=== PATIENT | female | born 1945 | race Caucasian/White ===

== ENCOUNTER 2021-04-08 15:47 | Outpatient (RCR) | payer MEDICARE, MEDICAID, SELFPAY ==
--- NOTE | 2021-04-08 17:04 | PTOPEVAL ---
Thank you for referring Danette Hernandez to [facility].? The patient is scheduled to be seen for therapy? ____x/week for ___ weeks. Please review, sign, date and return this plan of care PATRIC. I agree with and certify that the following plan of care is medically necessary. Referring Physician Date Admitting Provider: Attending Provider: FRANCIE WILLIAM Referring Provider: JORDY Outpatient Evaluation Start: 04/08/21 16:02 Freq: Status: Active Protocol: Document 04/08/21 16:02 ACR (Rec: 04/08/21 17:03 ACR [id number]) Therapy Assessment Status Assessment Status Assessment Status Evaluation Evaluation Information Problem Diagnosis R hip pain Onset 03/08/21 Subjective Information Patient states that about a Query Text:As Reported By Patient/ month ago she started to have Family groin pain and does not know of any mechanism of injury. Patient reports difficulty with walking, standing for more than 5-10 minutes, getting in and out of bed or a car due to her having difficulty lifting the leg. Patient reports that relaxing eases the pain. Patient reports that she lives along in her house and is able to do all of her ADL's. She does not drive and her daughter does her grocery shopping for her. She ambulates within the home using a FWW and a rollator out in the community. Patient reports her goal for therapy is to walk better and without pain. Prior Level of Function Activity Level (Last 3 Months) Occupation retired Hand Dominance Right Activity of Daily Living Ability Independent Indoor/Home Mobility Independent Community Mobility Needs Some Help Stairs Ability Needs Some Help Functional Cognition (Planning, Shopping Independent , Taking Medications) Cooking Yes Cleaning Yes Laundry Yes Shopping No Driving No Pain Assessment Timing of Pain Assessment Timing of Pain Assessment Assessment Pain Scale Pain Scale Used Numeric (1 - 10) Self Report Pain Assessment Right Hip(s) Repor
--- NOTE | 2021-05-27 08:53 | PCPTNOTE ---
Patient is a 76 year old female seen for 6 visits for hip pain. The patient feels she can do everything and would like to be discharged at this time. Please refer to most recent treatment note for discharge status. Thank you, Jane Lorenzana DPT
== END 2021-04-29 16:17 | disposition home or self-care (01) ==
LOC: CHSPT 15:47
PROVIDERS: PCP Emergency Medicine
DX: M16.11 Unilateral primary osteoarthritis, right hip (principal)
CPT/HCPCS: 97110; 97161

== ENCOUNTER 2023-09-27 10:49 | Inpatient (IN) | payer MEDICARE, MEDICAID, SELFPAY ==
--- NOTE | ~2023-09-27 | XR_ITS ---
EXAMINATION: XR chest 1V INDICATION: Pain after fall TECHNIQUE: AP view of the chest is obtained. COMPARISON: None available FINDINGS: There are subtle patchy airspace opacities of the lungs. No pleural effusion or pneumothora x. The cardiomediastinal silhouette is normal. IMPRESSION: 1. Subtle patchy airspace opacities of the lungs which could reflect atelectasis versus pneumonia. Reviewed, dictated and finalized at location B. RESSION MOLDING MACHINE OPERATOR IMPRESSION: 1. Subtle patchy airspace opacities of the lungs which could reflect atelectasi s versus pneumonia.
--- NOTE | ~2023-09-27 | XR_ITS ---
EXAMINATION: XR pelvis 1-2V INDICATION: Left hip pain TECHNIQUE: AP view the pelvis is obtained. COMPARISON: None available FINDINGS: There is an oblique fracture of the proximal femoral shaft. The distal fracture fragment is medially displaced and overriding by approximately 5 cm. Bone alignment the hips is normal. No pelvi c fractures identified. There is calcified atherosclerosis. IMPRESSION: 1. Oblique fracture of the proximal femoral shaft which is displaced and overriding. Reviewed, dictated and finalized at location B. SOCIAL SERVICES IMPRESSION: 1. Oblique fracture of the proximal femoral shaft which is displaced and overri ding.
--- NOTE | ~2023-09-27 | XR_ITS ---
EXAMINATION: XR femur LT min 2V INDICATION: Left hip pain, initial encounter TECHNIQUE: Two views of the left femur are obtained on four radiographs COMPARISON: None available FINDINGS: There is an acute, traumatic, closed, oblique fracture of the distal femoral shaft. The dis juana fracture fragment is medially displaced and overriding by approximately 5 cm. There is shortening of the thigh. Alignment at the hip and knee is normal. IMPRESSION: 1. Displaced and overriding fracture of the distal femur. Reviewed, dictated and finalized at location B. NESS NURSE
--- NOTE | ~2023-09-27 | XR_ITS ---
EXAMINATION: XR surgery orthopedic DATE: 09/28/2023 12:45 TRACK LAYING SUPERVISOR INDICATION: LT IT NAIL . TECHNIQUE: 8 fluoroscopic images of the left femur were obtained during left intertrochanteric nail p lacement, performed by the surgeon. I was not present during the procedure. Fluoroscopy exposure time was 161.6 seconds. Air Kerma 35.57 mGy. DAP [id number] mGym2. COMPARISON: None FINDINGS/IMPRESSION: Fluoroscopic documentation of left intertrochanteric nail placement. Please refer to the operative no te for complete procedural details. Reviewed, dictated and finalized at location K. K LAYING SUPERVISOR
--- NOTE | ~2023-09-27 | XR_ITS ---
EXAMINATION: [id number]_[id number]_CR DATE: 09/30/2023 09:49 INDICATION: Right knee pain. TECHNIQUE: 2 views of right knee were obtained. COMPARISON: None. FINDINGS: Bone alignment is normal. No fracture. There is mild osteoarthritis of patellofemoral karina rtment. No knee joint effusion. IMPRESSION: 1. Mild right knee osteoarthritis. Reviewed, dictated and finalized at location A. IFIED FLIGHT INSTRUCTOR
[2023-09-27 10:40] VITALS: BP 175/65; PULSE 84; RESP 19; TEMP 36.5; O2SAT 97
--- NOTE | 2023-09-27 11:13 | ECG_ITS ---
Measurements Intervals [place] Rate: 88 P: 44 OK: 143 QRS: 17 QRSD: 82 T: 31 QT: 357 QTc: 432 Interpretive Statements SINUS RHYTHM WITH OCCASIONAL SUPRAVENTRICULAR PREMATURE COMPLEXES OTHERWISE WITHIN NORMAL LIMITS NO PREVIOUS ECG AVAILABLE FOR COMPARISON Electronically Signed On 09-27-2023 18:25:16 CAPTAIN OF GUARDS by Papa Booth M.D.
--- NOTE | 2023-09-27 11:19 | ED.FALL ---
HPI - Fall General Chief Complaint: Fall <JEANETTE Melvin Last Filed: 09/27/23 19:30> Stated Complaint: fall, hip pain <Kiki Jones PA-C - Last Filed: 09/27/23 19:30> Source: patient <Kiki Jones PA-C - Last Filed: 09/27/23 19:30> Mode of arrival: EMS <JEANETTE Melvin Last Filed: 09/27/23 19:30> Limitations: no limitations <JEANETTE Melvin Last Filed: 09/27/23 19:30> History of Present Illness HPI Narrative: Patient is a 78 y/o female who presents to the ED via EMS from home with report of fall. Patient reports she was standing up making tea for herself when she slipped and fell. She landed on her left side. Was unable to get off the ground, complained of pain to left hip/thigh. Deformity noted by EMS. Patient denies any head injury or LOC. Denies any other areas of pain. Denies neck or back pain, knee pain. Denies dizziness, vision changes. Denies numbness or tingling. Patient was given fentanyl EN route to the ED by EMS and had a localized reaction to this at IV site, given Benadryl. Patient is on any blood thinners. She is typically ambulatory with a walker. <Kiki Jones PA-C - Last Filed: 09/27/23 19:30> Related Data Home Medications: Home Medications Medication Instructions Recorded Confirmed amlodipine 5 mg tablet 5 mg PO DAILY 09/27/23 09/27/23 aspirin 325 mg tablet 325 mg PO DAILY 09/27/23 09/27/23 benazepril 20 mg tablet 20 mg PO DAILY 09/27/23 09/27/23 donepezil 5 mg tablet 5 mg PO HS 09/27/23 09/27/23 hydrochlorothiazide 12.5 mg capsule 12.5 mg PO DAILY 09/27/23 09/27/23 levetiracetam 500 mg tablet 500 mg PO Q12H 09/27/23 09/27/23 lovastatin 20 mg tablet 20 mg PO HS 09/27/23 09/27/23 magnesium 250 mg tablet 250 mg PO DAILY 09/27/23 09/27/23 mirtazapine 45 mg tablet 45 mg PO HS 09/27/23 09/27/23 omeprazole 40 mg capsule,delayed 40 mg PO DAILY 09/27/23 09/27/23 release pentoxifylline 400 mg 400 mg PO TID 09/27/23 09/27/23 tablet,extended release pramipexole 0.25 mg tablet 0.25 mg PO HS 09/27/23 09/27/23 ropinirole 4 mg tablet 4 mg PO HS 09/27/23 09/27/23 <Kiki Jones PA-C - Last Filed: 09/27/23 19:30> Allergies/Adverse Reactions: Allergies Allergy/AdvReac Type Severity Reaction Status Date / Time fentanyl Allergy Rash Verified 09/27/23 11:02 <Kiki Jones PA-C - Last Filed: 09/27/23 19:30> Review of Systems Review of Systems: CONSTITUTIONAL: Denies fever, chills, or sweats. CARDIOVASCULAR: Denies chest pain. RESPIRATORY: Denies dyspnea. GASTROINTESTINAL: Denies abdominal pain, nausea, vomiting MUSCULOSKELETAL: See HPI. NEUROLOGIC: See HPI. <Kiki Jones PA-C - Last Filed: 09/27/23 19:30> All systems reviewed & are unremarkable except as noted in HPI and below <Kiki Jones PA-C - Last Filed: 09/27/23 19:30> [facility] Past Medical History Medical History: Medical History (Updated 09/27/23 @ 22:42 by Monique Conway PA-C) Cerebral aneurysm Fracture of femur, left, closed Frequent falls Hyperlipidemia Hypertension Insomnia Memory loss Partial seizures Peripheral vascular disease Restless leg syndrome Vitamin D deficiency <Kiki Jones PA-C - Last Filed: 09/27/23 19:30> Surgical History Surgical History: Surgical History (Updated 09/27/23 @ 22:42 by Monique Conway PA-C) No history of previous surgery <Kiki Jones PA-C - Last Filed: 09/27/23 19:30> Social History Social History: Social History Social History: Surrogate medical decision maker: Darshana Martínez, daughter. Code status: Full code. Smoking status: Current every day smoker Tobacco type: e-cigarettes/vaping Alcohol intake: never Substance use: never Do You Feel Safe in your Home?: Yes Lack of Transportation: No Lack of Food: Never True Current Hous
[2023-09-27 11:50] VITALS: BP 150/72; PULSE 88; RESP 28; O2SAT 97
[2023-09-27 12:08] LABS: Basophils Absolute Auto 0.1 K/mm3 (0.0-0.1); Basophils Percent Auto 0.4 % (0.2-1.2); Eosinophils Percent Auto 0.1 % (0-4.4); Hematocrit 34.5 % (37.0-47.0); Hemoglobin 11.4 g/dL (12.0-15.0); Immature Granulocyte Absolute 0.06 K/mm3 (0.00-0.031); Immature Granulocyte Percent A 0.4 % (0-0.5); Lymphocytes Absolute Auto 1.19 K/mm3 (0.9-3.2); Lymphocytes Percent Auto 8.5 % (18.3-44.2); Mean Corpuscular Hemoglobin 29.9 pg (26-34); Mean Corpuscular Volume 90.6 fl (80-100); Mean Platelet Volume 10.3 fl (7.4-10.4); Monocytes Absolute Auto 0.9 K/mm3 (0.1-0.6); Monocytes Percent Auto 6.5 % (2.6-8.5); Neutrophils Absolute Auto 11.7 K/mm3 (1.3-6.7); Neutrophils Percent Auto 84.1 % (45.5-73.1); Platelet Count Result 298 k/mm3 (150-375); Red Blood Count 3.81 M/mm3 (4.2-5.4); Red Cell Distribution Width 12.5 % (11.5-14.5); White Blood Count 13.9 K/mm3 (4.5-10.0)
[2023-09-27 12:12] LABS: Appearance Urine Clear (Clear); Bacteria Urine 4+ /hpf; Bilirubin Urine Negative (Negative); Blood Urine 1+ (Negative); Color Urine Yellow (Yellow); Glucose Urine UA Negative (Negative); Ketones Urine Negative (Negative); Leukocyte Esterase Ur Negative LEU/UL (Negative); Nitrate Urine Positive (Negative); Non Pathogenic Casts 0-2; Protein Urine 2+ mg/dL (Negative); RBC Urine 0-2 /hpf (0-2); Specific Grav Ur 1.015 (1.001-1.035); Squamous Epithelial Cell Urine None seen /hpf (Few); Urobilinogen Urine 0.2 mg/dL (<2.0); WBC Urine 0-5 /hpf
[2023-09-27 12:15] LABS: Add Urine Microscopic? YES
[2023-09-27 12:17] LABS: Alanine Aminotransferase 28 U/L (6-35); Albumin Level 4.2 g/dL (3.5-5.1); Alkaline Phosphatase 175 U/L (38-126); Anion Gap 7 mmol/L (8-16); Aspartate Amino Transferase 52 U/L (14-36); Bilirubin,Total 0.6 mg/dL (0.2-1.3); Blood Urea Nitrogen 25 mg/dL (7-17); Carbon Dioxide 23 mmol/L (22-30); Chloride 99 mmol/L (98-107); Estimated Glomerular Filt Rate 60; Glucose 116 mg/dL (65-110); Potassium 4.8 mmol/L (3.4-5.0); Sodium 129 mmol/L (137-145)
[2023-09-27 12:20] LABS: Partial Thromboplastin Time 28.9 SECONDS (22.3-36.8)
[2023-09-27] MEDS: ONDANSETRON INJ 4 MG/2 ML VIAL IV PUSH ×2 (12:32→14:32)
[2023-09-27] MEDS: MORPHINE SULFATE (*CRX) 4 MG/ML INJ IV PUSH ×4 (12:35→21:42)
[2023-09-27 12:37] VITALS: BP 187/78; PULSE 88; RESP 23; O2SAT 96
--- NOTE | 2023-09-27 14:38 | PM.IMHP ---
H&P: HPI History of Present Illness Date/Time: 09/27/23 13:45 Chief Complaint: Left leg pain after fall. Narrative: This is a 78-year-old female with hypertension, hyperlipidemia, peripheral vascular disease, memory loss, partial seizures, restless leg syndrome, gastroesophageal reflux disease, and vitamin-D deficiency who presented to the emergency department via EMS from home for evaluation of left leg pain after a ground level fall. The patient provides the following history. Per patient report she was standing in the kitchen, preparing herself a cup of tea, when she lost her balance and fell down to the floor onto her left side. She had immediate pain in the left leg and was unable to get up due to the pain. She denies head trauma and loss of consciousness in the fall and she has no other complaints of injury aside from the left hip pain. She also denies prodrome of symptoms prior to the episode and specifically denies lightheadedness, dizziness, chest pain, pleuritic pain, sensations of racing heart, palpitations, and shortness of breath. Of note, the patient ambulates with a walker though she has had some falls recently which she attributes to pain in her right knee which occasionally ayah. Is my understanding that she was seen by an internal controls specialist recently, had imaging done, and she was prescribed Voltaren gel which seems to help with her discomfort. In the ED: Blood pressure was as high as 187/78 but that has improved with IV pain medications. Labs were significant for WBC count of 13.9, hemoglobin 11.9, sodium 129, BUN 25, creatinine 0.90, glucose 116, AST 52, ALT 175. Urine was positive for protein, blood, nitrates, and bacteria. Minimal if any WBCs were noted on microscopy. Chest x-ray showed subtle patchy airspace opacities the lungs which could be atelectasis versus pneumonia. Pelvis and femur x-ray showed a distal left femur fracture. She is being admitted in this setting for pain control and orthopedic consultation. Regarding the abnormal chest x-ray and urinalysis, she denies symptoms of pneumonia and UTI. Review of Systems Review of Systems: Twelve systems were reviewed and are negative except for as per HPI. [facility] Past Medical History Medical History (Updated 09/27/23 @ 22:42 by Monique Conway PA-C) Cerebral aneurysm Fracture of femur, left, closed Frequent falls Hyperlipidemia Hypertension Insomnia Memory loss Partial seizures Peripheral vascular disease Restless leg syndrome Vitamin D deficiency Surgical History Surgical History (Updated 09/27/23 @ 22:42 by Monique Conway PA-C) No history of previous surgery Social History Social History Social History: Surrogate medical decision maker: Darshana Martínez, daughter. Code status: Full code. Smoking status: Current every day smoker Tobacco type: e-cigarettes/vaping Alcohol intake: never Substance use: never Do You Feel Safe in your Home?: Yes Lack of Transportation: No Lack of Food: Never True Current Housing: I Have Housing Concerned About Future Housing: No Difficulty Paying Gas/Electric Bills: No Difficulty Paying for Meds: No Currently Unemployed: No Education: Decline to Answer Difficulty w/ Childcare or Family Care: No Spiritual care concerns: No Meds Home Medications and Allergies Home Medications Medication Instructions Recorded Confirmed Type amlodipine 5 mg tablet 5 mg PO DAILY 09/27/23 09/27/23 History aspirin 325 mg tablet 325 mg PO DAILY 09/27/23 09/27/23 History benazepril 20 mg tablet 20 mg PO DAILY 09/27/23 09/27/23 History donepezil 5 mg tablet 5 mg PO HS 09/27/23 09/27/23 History hydrochlorothiazide 12.5 mg capsule 12.5 mg PO DAILY 09/27/23 09/27/23 History levetiracetam 500 mg tablet 500 mg PO Q12H 09/27/23 09/27/23 History lovastatin 20 mg tablet 20 mg PO HS 09/27/23 09/27/23 History magnesium 250 mg tablet 250 mg PO DA
[2023-09-27 14:39] VITALS: BP 144/66; PULSE 80; RESP 24; TEMP 36.8; O2SAT 97
[2023-09-27 14:52] VITALS: BP 153/51; PULSE 79; RESP 18; TEMP 36.4; O2SAT 95
--- NOTE | 2023-09-27 15:09 | PM.CNOR ---
Assessment and Plan Assessment and plan (1) Fracture of distal end of left femur: Qualifiers: Encounter type: initial encounter Fracture morphology: other fracture Fracture type: closed Qualified Code(s): S72.492A - Other fracture of lower end of left femur, initial encounter for closed fracture <Arabella Jasso CARPET RENOVATOR - Last Filed: 09/27/23 15:39> Code(s): S72.402A - Unspecified fracture of lower end of left femur, initial encounter for closed fracture <Arabella Pau Jasso, CARPET RENOVATOR - Last Filed: 09/27/23 15:39> Status: Acute <Arabella Ocampoz, CARPET RENOVATOR - Last Filed: 09/27/23 15:39> Assessment and Plan: History, exam and radiographs reviewed with the patient and her daughter at the bedside. Radiographs of the left femur reveal a displaced and overriding fracture of the distal femur. The fracture type and injury as well as radiographs discussed with the patient and family. Operative and nonoperative treatment options reviewed. Recommended operative treatment with IM nail of the left femur fracture. The patients questions were answered. The patient desires operative treatment. Discussed IM Nail Left Femur Fracture by Dr. Sullivan . Risks of surgery including but not limited to neurovascular damage, wound complications, blood clot, pulmonary embolus, stroke, myocardial infarction, anesthetic risks up to and including were reviewed. Risk of nonunion, malunion or late displacement discussed. Stiffness, pain and possible dysfunction of the joint discussed. No guarantees were offered. The patient and family understands and wishes to proceed. Plan: IM Nail Left Femur Fracture by Dr. Sullivan NPO at midnight. Diet in interim per medicine team. Pain control. Ice. HOLD Anticoagulation. Obtain consent. <Arabellasa Pau Jasso, CARPET RENOVATOR - Last Filed: 09/27/23 15:39> (2) Hyponatremia: Code(s): E87.1 - Hypo-osmolality and hyponatremia <ArabellaCORKY Rae - Last Filed: 09/27/23 15:39> Status: Acute <Arabellasa Pau Jasso CARPET RENOVATOR - Last Filed: 09/27/23 15:39> (3) Abnormal chest x-ray: Code(s): R93.89 - Abnormal findings on diagnostic imaging of other specified body structures <Arabella Ocamporikki CARPET RENOVATOR - Last Filed: 09/27/23 15:39> Status: Acute <Arabella Jasso CARPET RENOVATOR - Last Filed: 09/27/23 15:39> (4) Abnormal urinalysis: Code(s): R82.90 - Unspecified abnormal findings in urine <Arabella Pau Ocampoz, CARPET RENOVATOR - Last Filed: 09/27/23 15:39> Status: Acute <Arabella Pau Jasso CARPET RENOVATOR - Last Filed: 09/27/23 15:39> (5) UTI (urinary tract infection): Qualifiers: Hematuria presence: without hematuria Urinary tract infection type: acute cystitis Qualified Code(s): N30.00 - Acute cystitis without hematuria <Arabella Ocamporikki CARPET RENOVATOR - Last Filed: 09/27/23 15:39> Code(s): N39.0 - Urinary tract infection, site not specified <Arabella Ocamporikki CARPET RENOVATOR - Last Filed: 09/27/23 15:39> Status: Acute <Arabella Ocamporikki CARPET RENOVATOR - Last Filed: 09/27/23 15:39> (6) Frequent falls: Code(s): R29.6 - Repeated falls <Arabella Ocamporikki CARPET RENOVATOR - Last Filed: 09/27/23 15:39> Status: Acute <Arabella Jasso CARPET RENOVATOR - Last Filed: 09/27/23 15:39> Assessment and Plan: The patient has had frequent falls over the last several months. Patient will likely require discharge to a [facility] facility for rehabilitation postoperatively. Would recommend care coordination consult to begin dispo services. Family would prefer [facility]. <Arabella ManleyBlu Romero, CARPET RENOVATOR - Last Filed: 09/27/23 15:39> (7) Fracture of femur, left, closed: Qualifiers: Encounter type: initial encounter Femur location: shaft Fracture morphology: spiral Fracture alignment: displaced Qualified Code(s): S72.342A - Displaced spiral fracture of shaft of left femur, initial encounter for closed fracture <Arabellasa Pau Jasso CARPET RENOVATOR - Last Filed: 09/27/23 15:39> C
[2023-09-27 15:38] VITALS: BMI 36.3
--- NOTE | 2023-09-27 15:41 | ADMGEN ---
This patient, Danette Hernandez, was admitted to [facility] Surg Room 332-01. Patient/family oriented to hospital policies and general routines including ID bracelet, bed and alarms, visiting hours, pain management, procedures, bathroom and other care routines, personal items, smoking policy, room service/diet, and visiting hours. Information on how to activate the Rapid Response Team has been discussed. Patient/Family are encouraged to report perceived risks to care and to ask questions if they do not understand what they are told or what they should do.
[2023-09-27 22:00] VITALS: BP 162/71; PULSE 84; RESP 18; TEMP 36; O2SAT 93
[2023-09-28] VITALS (10 sets, daily range): BP systolic 117–161; BP diastolic 52–129; PULSE 74–87; RESP 14–20; TEMP 35.9–36.8; O2SAT 90–100
[2023-09-28] MEDS: LOVASTATIN 20 MG TABLET PO
[2023-09-28 00:32] LABS: Sodium 129 mmol/L (137-145)
[2023-09-28 00:48] LABS: Creatinine Urine 62.8 mg/dL; Urea Random Urine 646 MG/DL
[2023-09-28 00:50] LABS: Sodium Urine Random 121 meq/L
[2023-09-28] MEDS: MORPHINE SULFATE (*CRX) 4 MG/ML INJ 2 MG IV PUSH ×2 (03:28→20:45)
[2023-09-28 05:49] LABS: Hemoglobin 10.5 g/dL (12.0-15.0); Mean Corpuscular HGB Conc 31.8 g/dl (32-36); Mean Corpuscular Hemoglobin 29.8 pg (26-34); Mean Corpuscular Volume 93.8 fl (80-100); Mean Platelet Volume 10.5 fl (7.4-10.4); Platelet Count Result 268 k/mm3 (150-375); Red Blood Count 3.52 M/mm3 (4.2-5.4); Red Cell Distribution Width 12.8 % (11.5-14.5)
[2023-09-28 06:11] LABS: Anion Gap 6 mmol/L (8-16); Blood Urea Nitrogen 37 mg/dL (7-17); Calcium 9.2 mg/dL (8.4-10.2); Carbon Dioxide 24 mmol/L (22-30); Chloride 100 mmol/L (98-107); Estimated Glomerular Filt Rate 33; Glucose 103 mg/dL (65-110); Magnesium 1.7 mg/dL (1.6-2.3); Potassium 4.9 mmol/L (3.4-5.0); Sodium 130 mmol/L (137-145)
--- NOTE | 2023-09-28 07:28 | WPDHPUPDATE1 ---
History and Physical Update Update Date/Time: 09/28/23 07:28 History and Physical has been reviewed, including an updated exam of the patient. There are NO changes in the patient's condition. Risks, benefits, and alternatives have been discussed and questions answered. Patient agrees to proceed with procedure.
[2023-09-28] MEDS: PENTOXIFYLLINE 400 MG TABCR PO ×4 (08:23→20:24)
[2023-09-28] MEDS: amLODIPine BESYLATE 5 MG TABLET PO (08:23)
[2023-09-28] MEDS: levETIRAcetam 500 MG TABLET PO ×3 (08:23→20:24)
--- NOTE | 2023-09-28 08:35 | PM.IMPN ---
Progress Note: A&P Assessment and Plan (1) Fracture of distal end of left femur: Qualifiers: Encounter type: initial encounter Fracture morphology: other fracture Fracture type: closed Qualified Code(s): S72.492A - Other fracture of lower end of left femur, initial encounter for closed fracture Code(s): S72.402A - Unspecified fracture of lower end of left femur, initial encounter for closed fracture Status: Acute (2) Hyponatremia: Code(s): E87.1 - Hypo-osmolality and hyponatremia Status: Acute (3) Abnormal urinalysis: Code(s): R82.90 - Unspecified abnormal findings in urine Status: Acute (4) Fall from ground level: Code(s): W18.30XA - Fall on same level, unspecified, initial encounter Status: Acute (5) Abnormal chest x-ray: Code(s): R93.89 - Abnormal findings on diagnostic imaging of other specified body structures Status: Acute (6) Hypertension: Code(s): I10 - Essential (primary) hypertension Status: Acute (7) Hyperlipidemia: Code(s): E78.5 - Hyperlipidemia, unspecified Status: Acute (8) Partial seizures: Code(s): R56.9 - Unspecified convulsions Status: Acute (9) Restless leg syndrome: Code(s): G25.81 - Restless legs syndrome Status: Acute (10) Memory loss: Code(s): R41.3 - Other amnesia Status: Acute (11) Peripheral vascular disease: Code(s): I73.9 - Peripheral vascular disease, unspecified Status: Acute Plan This is a 78-year-old female with hypertension, hyperlipidemia, peripheral vascular disease, memory loss, partial seizures, restless leg syndrome, gastroesophageal reflux disease, and vitamin-D deficiency who presented to the emergency department via EMS from home for evaluation of left leg pain after a ground level fall. The patient provides the following history. Per patient report she was standing in the kitchen, preparing herself a cup of tea, when she lost her balance and fell down to the floor onto her left side. She had immediate pain in the left leg and was unable to get up due to the pain. She denies head trauma and loss of consciousness in the fall and she has no other complaints of injury aside from the left hip pain. She also denies prodrome of symptoms prior to the episode and specifically denies lightheadedness, dizziness, chest pain, pleuritic pain, sensations of racing heart, palpitations, and shortness of breath. Of note, the patient ambulates with a walker though she has had some falls recently which she attributes to pain in her right knee which occasionally ayah. Is my understanding that she was seen by an literacy specialist recently, had imaging done, and she was prescribed Voltaren gel which seems to help with her discomfort. In the ED: Blood pressure was as high as 187/78 but that has improved with IV pain medications. Labs were significant for WBC count of 13.9, hemoglobin 11.9, sodium 129, BUN 25, creatinine 0.90, glucose 116, AST 52, ALT 175. Urine was positive for protein, blood, nitrates, and bacteria. Minimal if any WBCs were noted on microscopy. Chest x-ray showed subtle patchy airspace opacities the lungs which could be atelectasis versus pneumonia. Pelvis and femur x-ray showed a distal left femur fracture. She is being admitted in this setting for pain control and orthopedic consultation. Regarding the abnormal chest x-ray and urinalysis, she denies symptoms of pneumonia and UTI. She has a distal left femur fracture and will be NPO after midnight for surgical repair tomorrow. Analgesics are available as needed. Sodium was low 129 though she appears euvolemic on exam and I suspect this is due to her hydrochlorothiazide which will be held for now. TSH normal follow urine studies. UTI she received a dose of ceftriaxone in the emergency department for abnormal urinalysis we will continue with that, urine culture is growing E coli, as she is going to have
[2023-09-28 09:12] LABS: Creatine Kinase 1043 U/L (30-135)
--- NOTE | 2023-09-28 09:47 | PC.NURSE ---
To OR per bed. Report given to Natalie GAMEZ.
[2023-09-28] MEDS: LACTATED RINGERS 1,000 ML 30 ML IV CONT ×2 (10:05→14:01)
[2023-09-28] MEDS: ACETAMINOPHEN 500 MG TABLET 1000 MG PO (10:18)
[2023-09-28] MEDS: KETOROLAC 15 MG/ML VIAL (*BKC) IV PUSH (10:18)
--- NOTE | 2023-09-28 10:58 | WPDANESEPPF ---
Anes - Initial Pre Proc Eval Procedure: Operation Date: 09/28/23 11:00 Proposed Procedures p Left Intramedullary Nail - Bartolo Sullivan MD Date/Time: 09/28/23 10:58 Surgeon: Caroline Dickey MD Pre Op Diagnosis: GLF/ L DISTAL Femur Fx/ UTI Patient Data Age: 78 Gender: F Height: 1.37 m Weight: 68.5 kg Last Vital Signs Temp 36.8 C 09/28/23 06:30 Pulse 81 09/28/23 06:30 Resp 18 09/28/23 06:30 BP 137/60 09/28/23 06:30 Pulse Ox 95 09/28/23 06:30 O2 Del Method Room Air 09/28/23 08:20 Allergies Allergy/AdvReac Type Severity Reaction Status Date / Time fentanyl Allergy Rash Verified 09/28/23 10:34 Home Medications Medication Instructions Recorded Confirmed Type amlodipine 5 mg tablet 5 mg PO DAILY 09/27/23 09/27/23 History aspirin 325 mg tablet 325 mg PO DAILY 09/27/23 09/27/23 History benazepril 20 mg tablet 20 mg PO DAILY 09/27/23 09/27/23 History donepezil 5 mg tablet 5 mg PO HS 09/27/23 09/27/23 History hydrochlorothiazide 12.5 mg capsule 12.5 mg PO DAILY 09/27/23 09/27/23 History levetiracetam 500 mg tablet 500 mg PO Q12H 09/27/23 09/27/23 History lovastatin 20 mg tablet 20 mg PO HS 09/27/23 09/27/23 History magnesium 250 mg tablet 250 mg PO DAILY 09/27/23 09/27/23 History mirtazapine 45 mg tablet 45 mg PO HS 09/27/23 09/27/23 History omeprazole 40 mg capsule,delayed 40 mg PO DAILY 09/27/23 09/27/23 History release pentoxifylline 400 mg 400 mg PO TID 09/27/23 09/27/23 History tablet,extended release pramipexole 0.25 mg tablet 0.25 mg PO HS 09/27/23 09/27/23 History ropinirole 4 mg tablet 4 mg PO HS 09/27/23 09/27/23 History Laboratory Tests 09/27/23 09/27/23 09/28/23 12:02 23:55 00:19 WBC 13.9 H K/mm3 (4.5-10.0) RBC 3.81 L M/mm3 (4.2-5.4) Hgb 11.4 L g/dL (12.0-15.0) Hct 34.5 L % (37.0-47.0) MCV 90.6 fl (80-100) MCH 29.9 pg (26-34) MCHC 33.0 g/dl (32-36) RDW 12.5 % (11.5-14.5) Plt Count 298 k/mm3 (150-375) MPV 10.3 fl (7.4-10.4) Immature Gran % (Auto) 0.4 % (0-0.5) Neut % (Auto) 84.1 H % (45.5-73.1) Lymph % (Auto) 8.5 L % (18.3-44.2) Wise % (Auto) 6.5 % (2.6-8.5) Eos % (Auto) 0.1 % (0-4.4) Baso % (Auto) 0.4 % (0.2-1.2) Lymph # (Auto) 1.19 K/mm3 (0.9-3.2) Wise # (Auto) 0.9 H K/mm3 (0.1-0.6) Eos # (Auto) 0.0 K/mm3 (0-0.3) Baso # (Auto) 0.1 K/mm3 (0.0-0.1) Abs Immat Gran (auto) 0.06 H K/mm3 (0.00-0.031) Absolute Neuts (auto) 11.7 H K/mm3 (1.3-6.7) Absolute Nucleated RBC 0.0 K/mm3 (0.0-0.012) Nucleated RBC % 0.0 % (0.0-0.2) PT 14.0 Seconds (11.1-14.7) INR 1.0 APTT 28.9 SECONDS (22.3-36.8) Sodium 129 L mmol/L 129 L mmol/L (137-145) (137-145) Potassium 4.8 mmol/L (3.4-5.0) Chloride 99 mmol/L (98-107) Carbon Dioxide 23 mmol/L (22-30) Anion Gap 7 L mmol/L (8-16) BUN 25 H mg/dL (7-17) Creatinine 0.90 mg/dL (0.7-1.0) Estim Creat Clear Calc Not Reportable Estimated GFR 60 (59 - ) Glucose 116 H mg/dL (65-110) Serum Osmolality Pending Calcium 10.0 mg/dL (8.4-10.2) Magnesium Total Bilirubin 0.6 mg/dL (0.2-1.3) AST 52 H U/L (14-36) ALT 28 U/L (6-35) Alkaline Phosphatase 175 H U/L (38-126) Total Creatine Kinase Total Protein 7.0 g/dL (6.3-8.2) Albumin 4.2 g/dL (3.5-5.1) TSH (Reflex) 3.290 uIU/mL (0.465-4.68) Urine Color Yellow (Yellow) Urine Appearance Clear (Clear) Urine pH 6.0 (5.0-9.0) Ur Specific [place] 1.015 (1.001-1.035) Urine Protein 2+ H mg/dL
[2023-09-28] MEDS: TRANEXAMIC ACID 1,000MG/ISO100 1,000 MG/100 ML BAG 200 MG IVPB (11:35)
[2023-09-28] MEDS: ceFAZolin 2 GM/D5W 50 ML 2 GM/50 ML BAG IVPB (12:01)
[2023-09-28] MEDS: BUPIVACAINE/EPINEPHRINE 0.5% 30 ML VIAL 15 ML INFILTRATE (12:53)
--- NOTE | 2023-09-28 13:12 | P.OP_ITS ---
Procedure Note - Detailed Date of Procedure 09/28/23 Pre-op Diagnosis GLF/ L Femur Fx/ UTI Post-op Diagnosis Same Procedure Performed IM nail fixation left femur fracture, diaphyseal Surgeon Bartolo Sullivan MD [facility] [employer] healthcare administrative assistant Anesthesia General Indications 78-year-old who fell and sustained a left distal femoral shaft fracture. Desires operative treatment. Description of Procedure After informed consent the operative extremity was marked in the preoperative holding area. Patient received intravenous antibiotics. The patient was taken to the operative room, placed in the supine position, general anesthesia induced by the anesthesia team, and was placed on a fracture table with longitudinal traction applied to the left leg. The femur fracture was reduced to near anatomic position and verified with image intensification. A time-out was performed confirming the patient, site of the surgery and plan. The left lower extremity was prepped and draped sterilely from the knee to the iliac crest region using a ChloraPrep skin solution. Incision was made just proximal to greater trochanter down to the subcutaneous tissues. Hemostasis controlled with electrocautery. Blunt dissection through the fascia to the tip of the greater trochanter. A starter awl was placed at the tip of the greater trochanter into the medullary canal of the femur. This was checked with image intensification and was in good position. In tramedullary guide ankur positioned. A one-step hand reaming done proximally. Intramedullary canal was reamed with a 12.5 millimeter flexible reamer. Measuring was then performed off of the guide ankur. Neck angle selected off of preoperative radiographs temp plating. 125 degree 11 X 300 mm Nail opened on the back table and assembled. This was then inserted over the guide ankur to the correct depth. Guide ankur removed. Lag screw was then placed with a stab incision over the lateral femur using a 10 blade knife. Blunt dissection down to the lateral side of the bone. Soft tissue protectors placed. Guide pin placed in the center center position of the femoral head and measured. 85 millimeter x 10 millimeter lag screw placed to correct depth and verified with image intensification. Traction released from the leg and compression of the fracture performed with the external compression device. Distal locking of the nail necessary due to instability in the intramedullary canal and proximal femur. Stab incision made lateral mid thigh with the placement guide. Blunt dissection down lateral side of the femur. Soft tissue protector inserted. Image intensification used to guide drill which was placed through the locking hole. Distal femur measured and the appropriate size screw placed x 2screws. Image intensification confirmed the placement through the locking hole. Final image intensification confirm reduction of the fracture and placement of the hardware. Wounds then thoroughly irrigated with antibiotic solution. Fascia repaired with 0 Vicryl interrupted suture. Subcutaneous tissue repaired with 00 Vicryl interrupted suture and skin approximated with 3-0 Monocryl interrupted suture and Dermabond. Sterile dressings applied. Patient then awoke from anesthesia, extubated, taken to recovery room stable condition. All sponge, needle and instrument counts correct at the end the case. Implants Arthrex intramedullary nail 125 degree x 300 mm by 11 mm. 85 mm lag screw and 46 and 50 mm distal locking screw Estimated Blood Loss 100 Drains No Packing No Pathology None sent Complications None Condition Stable Disposition PACU [facility] [place], [place] [facility] Surgery [facility]
[2023-09-28] MEDS: fentaNYL CITRATE INJ (*CRX) 100 MCG/2 ML VIAL 25 MCG IV PUSH (13:44)
[2023-09-28] MEDS: PANTOPRAZOLE 40 MG TABLET PO (17:51)
[2023-09-28] MEDS: SENNA/DOCUSATE SODIUM TABLET 2 TAB PO (17:51)
[2023-09-28] MEDS: RIVAROXABAN 10 MG TABLET PO (17:53)
[2023-09-28] MEDS: MAGNESIUM 13.5 MG TABLET (250 MG MAG GLUCONATE) PO (17:53)
--- NOTE | 2023-09-28 19:25 | PC.NURSE ---
I have reviewed the Beulah's charting. I agree with her findings.
[2023-09-28 20:14] LABS: Anion Gap 6 mmol/L (8-16); Blood Urea Nitrogen 40 mg/dL (7-17); Carbon Dioxide 22 mmol/L (22-30); Chloride 101 mmol/L (98-107); Creatine Kinase 888 U/L (30-135); Estimated Glomerular Filt Rate 33; Glucose 141 mg/dL (65-110); Sodium 129 mmol/L (137-145)
[2023-09-28] MEDS: MIRTAZAPINE 15 MG TABLET 45 MG PO ×2 (20:23)
[2023-09-28] MEDS: rOPINIRole HCL 1 MG TABLET 4 MG PO ×2 (20:23)
[2023-09-28] MEDS: ceFAZolin 1 GM/NS 50 ML 1 GM/50 ML BAG IVPB (20:23)
[2023-09-28] MEDS: PRAMIPEXOLE 0.25 MG TABLET PO ×2 (20:24)
[2023-09-28] MEDS: DONEPEZIL HCL 5 MG TABLET PO ×2 (20:24)
[2023-09-28] MEDS: HYDROcodone/acetaminophen (*CRX) 5-325 MG TABLET 1 TAB PO (20:28)
[2023-09-28] MEDS: SODIUM CHLORIDE 0.9% IV 1,000 ML 80 ML IV CONT (21:00)
[2023-09-29 01:00] VITALS: BP 132/53; PULSE 77; RESP 18; TEMP 36.4; O2SAT 95
[2023-09-29] MEDS: ceFAZolin 1 GM/NS 50 ML 1 GM/50 ML BAG IVPB ×2 (03:30→11:13)
[2023-09-29] MEDS: PENTOXIFYLLINE 400 MG TABCR PO ×3 (05:48→20:01)
[2023-09-29] MEDS: HYDROcodone/acetaminophen (*CRX) 5-325 MG TABLET 1 TAB PO ×3 (05:48→19:57)
[2023-09-29 05:55] VITALS: BP 156/61; PULSE 90; RESP 20; TEMP 36.3; O2SAT 94
[2023-09-29 06:28] LABS: Basophils Percent Auto 0.3 % (0.2-1.2); Eosinophils Percent Auto 0.2 % (0-4.4); Hematocrit 30.1 % (37.0-47.0); Hemoglobin 9.1 g/dL (12.0-15.0); Immature Granulocyte Absolute 0.06 K/mm3 (0.00-0.031); Immature Granulocyte Percent A 0.5 % (0-0.5); Lymphocytes Absolute Auto 1.62 K/mm3 (0.9-3.2); Lymphocytes Percent Auto 13.9 % (18.3-44.2); Mean Corpuscular HGB Conc 30.2 g/dl (32-36); Mean Corpuscular Hemoglobin 29.9 pg (26-34); Mean Platelet Volume 10.6 fl (7.4-10.4); Monocytes Percent Auto 8.5 % (2.6-8.5); Neutrophils Absolute Auto 8.9 K/mm3 (1.3-6.7); Neutrophils Percent Auto 76.6 % (45.5-73.1); Platelet Count Result 222 k/mm3 (150-375); Red Blood Count 3.04 M/mm3 (4.2-5.4); Red Cell Distribution Width 12.4 % (11.5-14.5); White Blood Count 11.7 K/mm3 (4.5-10.0)
[2023-09-29 06:45] LABS: Alanine Aminotransferase 21 U/L (6-35); Albumin Level 3.3 g/dL (3.5-5.1); Alkaline Phosphatase 125 U/L (38-126); Anion Gap 8 mmol/L (8-16); Aspartate Amino Transferase 48 U/L (14-36); Bilirubin,Total 0.6 mg/dL (0.2-1.3); Blood Urea Nitrogen 35 mg/dL (7-17); Carbon Dioxide 18 mmol/L (22-30); Chloride 105 mmol/L (98-107); Creatine Kinase 802 U/L (30-135); Estimated Glomerular Filt Rate 40; Glucose 105 mg/dL (65-110); Magnesium 1.8 mg/dL (1.6-2.3); Potassium 4.7 mmol/L (3.4-5.0); Sodium 131 mmol/L (137-145)
[2023-09-29 08:00] VITALS: BP 149/48; PULSE 88; RESP 16; TEMP 36.7; O2SAT 97
[2023-09-29] MEDS: polyethylene glycoL 3350 17 GM POWD.PACK PO (09:37)
[2023-09-29] MEDS: ASPIRIN 325 MG TABLET PO (09:38)
[2023-09-29] MEDS: levETIRAcetam 500 MG TABLET PO ×2 (09:38→20:01)
[2023-09-29] MEDS: amLODIPine BESYLATE 5 MG TABLET PO (09:38)
[2023-09-29] MEDS: PANTOPRAZOLE 40 MG TABLET PO ×2 (09:38→17:50)
[2023-09-29] MEDS: SENNA/DOCUSATE SODIUM TABLET 2 TAB PO ×2 (09:38→17:49)
[2023-09-29] MEDS: MAGNESIUM 13.5 MG TABLET (250 MG MAG GLUCONATE) PO (09:38)
[2023-09-29] MEDS: SODIUM CHLORIDE 0.9% IV 1,000 ML 80 ML IV CONT (09:39)
[2023-09-29] MEDS: MORPHINE SULFATE (*CRX) 4 MG/ML INJ 2 MG IV PUSH ×2 (11:12→20:48)
--- NOTE | 2023-09-29 11:38 | PM.IMPN ---
Progress Note: A&P Assessment and Plan (1) Fracture of distal end of left femur: Qualifiers: Encounter type: initial encounter Fracture morphology: other fracture Fracture type: closed Qualified Code(s): S72.492A - Other fracture of lower end of left femur, initial encounter for closed fracture Code(s): S72.402A - Unspecified fracture of lower end of left femur, initial encounter for closed fracture Status: Acute Assessment and Plan: Patient presents with complaints of hip pain after fall. X-ray shows oblique fracture of the proximal left femoral shaft which is displaced and overriding. Orthopedics was consulted. Patient underwent IM nail fixation left femur fracture on 09/28/2023. Patient appears of tolerated the procedure well. Therapy has been ordered. Pain management per Orthopedics. Stop IV fluids and remove Esqueda when okay with others. (2) Hyponatremia: Code(s): E87.1 - Hypo-osmolality and hyponatremia Status: Acute Assessment and Plan: Sodium was low on admission 129. It has improved slightly to 131. Possibly related to dehydration. Continue to monitor. (3) DEYANIRA (acute kidney injury): Code(s): N17.9 - Acute kidney failure, unspecified Status: Acute Assessment and Plan: Creatinine was 0.9 on admission but climbed to 1.5. Probably ATN vs medications vs infectious. Lisinopril and HCTZ on hold. IV fluids started. Creatinine trending downward now. Mild metabolic acidosis noted. Will follow for now. (4) UTI (urinary tract infection): Qualifiers: Hematuria presence: without hematuria Urinary tract infection type: acute cystitis Qualified Code(s): N30.00 - Acute cystitis without hematuria Code(s): N39.0 - Urinary tract infection, site not specified Status: Acute Assessment and Plan: UA is consistent with UTI. UCx collected. Rocephin started. UCx growing E coli sensitive to Rocephin. Change to cefdinir (5) Fall from ground level: Code(s): W18.30XA - Fall on same level, unspecified, initial encounter Status: Acute Assessment and Plan: As above. Appears that she was standing outside of the sink in the kitchen and lost her balance and fell. There was no head trauma. She is not complaining of knee pain but this seems to be more chronic. The right knee does occasionally buckle. Will defer to Orthopedics regarding the right knee pain. (6) Abnormal chest x-ray: Code(s): R93.89 - Abnormal findings on diagnostic imaging of other specified body structures Status: Acute Assessment and Plan: Chest x-ray shows subtle patchy airspace opacity in the lungs felt more likely atelectasis than pneumonia. No respiratory symptoms to support pneumonia. Remains on room air. follow clinically. (7) Hypertension: Code(s): I10 - Essential (primary) hypertension Status: Acute Assessment and Plan: Patient's blood pressure was reviewed on 09/29 Blood pressure remains reasonably well controlled. 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 Continue Keppra (9) Memory loss: Code(s): R41.3 - Other amnesia Status: Acute Assessment and Plan: Stable. Continue Aricept. Remeron is also been resumed. (10) Peripheral vascular disease: Code(s): I73.9 - Peripheral vascular disease, unspecified Status: Acute Assessment and Plan: Patient with known peripheral vascular disease. Currently on Trental. Mirapex and Requip continued for restless leg syndrome. Plan Code status - full DVT prophylaxis - Xarelto Subjective Date/time seen: 09/29/23 11:38 Interval history: 78yo female with HTN, seizures and PVD here for left hip pain after a fall. Assuming care. Chart reviewed. Her left leg pain is tolerabl
[2023-09-29 12:00] VITALS: BP 134/51; PULSE 81; RESP 16; TEMP 36.6; O2SAT 98
--- NOTE | 2023-09-29 12:35 | PM.PNORT ---
Progress Note: A&P Assessment and Plan (1) Fracture of femur, left, closed: Qualifiers: Encounter type: subsequent encounter Femur location: shaft Fracture morphology: spiral Fracture alignment: displaced Fracture healing: with routine healing Qualified Code(s): S72.342D - Displaced spiral fracture of shaft of left femur, subsequent encounter for closed fracture with routine healing Code(s): S72.92XA - Unspecified fracture of left femur, initial encounter for closed fracture Status: Acute Assessment and Plan: POD #1 LT femur IM nail PT/OT TTWB Xarelto Pain control Acute rehab vs SNF- family requests [facility] Subjective Subjective Date/Time Seen: 09/29/23 12:35 Post Op day: 1 Principal diagnosis: LT femur fracture Interval history: Patient resting comfortably. Awake and alert. Less confused today. Oriented to person, place and time. Complains of minimal pain left hip. Exam Const: General: comfortable; No acute distress Resp: Effort & Inspection: normal respiratory effort and no audible wheezes Extrem: Right lower extremity: lower leg ( Negative Homans sign), ankle Details: normal ROM ( dorsiflexion and plantar flexion intact) and foot Details: vascular exam Details: dorsalis pedis pulse present and normal capillary refill, tendon exam Details: active flexion normal and active extension normal and motor-sensory exam Details: light-touch normal Location: in all toes; no edema Left lower extremity: normal to inspection, ankle Details: normal ROM and foot Details: vascular exam Details: dorsalis pedis pulse present and normal capillary refill and motor-sensory exam light-touch normal in all toes; no edema Other: LT thigh, muscles soft, negative Jay's. Good sensation throughout. Moves toes and ankle Objective Data Vital Signs Vital Signs: Vital Signs - 24 hr 09/28/23 13:25 09/28/23 13:40 09/28/23 13:55 Temperature 97.7 F Pulse Rate 85 84 82 Respiratory Rate 16 17 18 Blood Pressure 161/129 H 148/94 H 117/53 L Pulse Oximetry 100 100 100 Oxygen Delivery Simple Face Mask Simple Face Mask Simple Face Mask Oxygen Flow Rate 6 8 6 09/28/23 14:10 09/28/23 14:25 09/28/23 14:40 Temperature 98.0 F Pulse Rate 85 87 81 Respiratory Rate 14 17 14 Blood Pressure 154/85 H 130/54 L 140/52 L Pulse Oximetry 93 90 98 Oxygen Delivery Room Air Room Air Nasal Cannula Oxygen Flow Rate 2 09/28/23 15:40 09/28/23 17:00 09/28/23 20:00 Temperature 97.9 F 98.0 F Pulse Rate 78 81 Respiratory Rate 19 18 Blood Pressure 136/53 L 144/61 H Pulse Oximetry 99 99 Oxygen Delivery Room Air Oxygen Flow Rate 09/28/23 21:20 09/29/23 01:00 09/29/23 05:55 Temperature 96.7 F L 97.6 F 97.4 F L Pulse Rate 74 77 90 Respiratory Rate 20 18 20 Blood Pressure 128/57 L 132/53 L 156/61 H Pulse Oximetry 97 95 94 Oxygen Delivery Oxygen Flow Rate 09/29/23 08:00 09/29/23 09:50 09/29/23 10:53 Temperature 98.0 F Pulse Rate 88 Respiratory Rate 16 Blood Pressure 149/48 H Pulse Oximetry 97 Oxygen Delivery Room Air Room Air Oxygen Flow Rate 09/29/23 12:00 Temperature 97.9 F Pulse Rate 81 Respiratory Rate 16 Blood Pressure 134/51 L Pulse Oximetry 98 Oxygen Delivery Oxygen Flow Rate Intake/Output Intake/Output: Intake & Output 09/26/23 09/27/23 09/28/23 09/29/23 23:59 23:59 23:59 23:59 Intake Total 290 1120 1402 Output Total 450 450 550 Balance -160 670 852 Meds/Results Medications: Active Medications Generic Name Dose Route Start Last Admin Trade Name Freq PRN Reason Stop Dose Admin Acetaminophen 650 mg 09/27/23 22:48 Acetaminophen 325 Mg Tablet PO Q6H PRN Mild Pain (1-3) or Fever Hydrocodone Bitart/Acetaminophen 1 tab 09/28/23 14:58 09/29/23 09:37 Hydrocodone/Acetaminophen (*Crx) 5-325 Mg Tablet PO 1 tab Q3H PRN Administration Pain Rated 4-6 Amlodipine Besylate 5 mg 09/28/23 09:00
[2023-09-29 16:00] VITALS: BP 146/46; PULSE 89; RESP 16; TEMP 36.7; O2SAT 97
[2023-09-29] MEDS: RIVAROXABAN 10 MG TABLET PO (17:50)
[2023-09-29 20:00] VITALS: BP 134/55; PULSE 103; RESP 20; TEMP 36.9; O2SAT 98
[2023-09-29] MEDS: rOPINIRole HCL 1 MG TABLET 4 MG PO (20:01)
[2023-09-29] MEDS: PRAMIPEXOLE 0.25 MG TABLET PO (20:01)
[2023-09-29] MEDS: DONEPEZIL HCL 5 MG TABLET PO (20:01)
[2023-09-29] MEDS: CEFDINIR 300 MG CAPSULE PO (20:02)
[2023-09-29] MEDS: MIRTAZAPINE 15 MG TABLET 45 MG PO (20:02)
[2023-09-30] VITALS: BP 150/51; PULSE 91; RESP 20; TEMP 36.4; O2SAT 97
[2023-09-30] MEDS: HYDROcodone/acetaminophen (*CRX) 5-325 MG TABLET 1 TAB PO ×2 (04:44→21:17)
[2023-09-30] MEDS: PENTOXIFYLLINE 400 MG TABCR PO ×3 (04:44→20:55)
[2023-09-30 06:53] VITALS: BP 186/54; PULSE 98; RESP 20; TEMP 36.9; O2SAT 97
[2023-09-30 06:58] LABS: Hematocrit 26.9 % (37.0-47.0); Hemoglobin 8.5 g/dL (12.0-15.0); Mean Corpuscular HGB Conc 31.6 g/dl (32-36); Mean Corpuscular Hemoglobin 30.6 pg (26-34); Mean Corpuscular Volume 96.8 fl (80-100); Mean Platelet Volume 10.9 fl (7.4-10.4); Platelet Count Result 224 k/mm3 (150-375); Red Blood Count 2.78 M/mm3 (4.2-5.4); Red Cell Distribution Width 12.7 % (11.5-14.5)
[2023-09-30 07:15] LABS: Albumin Level 3.2 g/dL (3.5-5.1); Anion Gap 3 mmol/L (8-16); Blood Urea Nitrogen 28 mg/dL (7-17); Calcium 9.2 mg/dL (8.4-10.2); Carbon Dioxide 22 mmol/L (22-30); Chloride 107 mmol/L (98-107); Estimated Glomerular Filt Rate 43; Glucose 112 mg/dL (65-110); Magnesium 1.8 mg/dL (1.6-2.3); Phosphorus 3.1 mg/dL (2.5-4.5); Potassium 4.3 mmol/L (3.4-5.0); Sodium 132 mmol/L (137-145)
[2023-09-30 08:20] VITALS: BP 167/45; PULSE 89; RESP 17; TEMP 36.8; O2SAT 98
[2023-09-30] MEDS: SODIUM CHLORIDE 0.9% IV 1,000 ML 80 ML IV CONT ×2 (08:53→16:21)
[2023-09-30] MEDS: CEFDINIR 300 MG CAPSULE PO ×2 (09:13→20:51)
[2023-09-30] MEDS: polyethylene glycoL 3350 17 GM POWD.PACK PO (09:14)
[2023-09-30] MEDS: amLODIPine BESYLATE 5 MG TABLET PO (09:14)
[2023-09-30] MEDS: ASPIRIN 325 MG TABLET PO (09:16)
[2023-09-30] MEDS: SENNA/DOCUSATE SODIUM TABLET 2 TAB PO ×2 (09:16→16:17)
[2023-09-30] MEDS: levETIRAcetam 500 MG TABLET PO ×2 (09:16→20:51)
[2023-09-30] MEDS: PANTOPRAZOLE 40 MG TABLET PO ×2 (09:16→16:17)
[2023-09-30] MEDS: MAGNESIUM 13.5 MG TABLET (250 MG MAG GLUCONATE) PO (09:16)
--- NOTE | 2023-09-30 09:25 | PM.PNORT ---
Progress Note: A&P Assessment and Plan (1) Fracture of femur, left, closed: Qualifiers: Encounter type: subsequent encounter Femur location: shaft Fracture morphology: spiral Fracture alignment: displaced Fracture healing: with routine healing Qualified Code(s): S72.342D - Displaced spiral fracture of shaft of left femur, subsequent encounter for closed fracture with routine healing Code(s): S72.92XA - Unspecified fracture of left femur, initial encounter for closed fracture Status: Acute Assessment and Plan: POD #2 LT femur IM nail Continue PT/OT. WBAT. Walker. HIGH FALL RISK. Continue pain control. Ice Leg. Protect skin. DVT prophylaxis with Aspirin/Xarelto SCDs. Incentive Spirometry Use reviewed. Monitor Dressing. Change prior to discharge. Bowel Regimen. Dispo: SNF vs. Swing Bed vs [facility] pending progress with PT/OT (2) Right knee pain: Qualifiers: Chronicity: chronic Qualified Code(s): M25.561 - Pain in right knee; G89.29 - Other chronic pain Code(s): M25.561 - Pain in right knee Status: Acute Assessment and Plan: Family/patient with complaints of right knee pain. History of right knee DJD. No radiographs available for review. New radiographs ordered. Plan for possible injection of the right knee pending radiograph results. Plan Reviewed history, exam, radiographs and current labs with attending MD and covering surgeon, Dr. Sullivan, who agrees with current plan as indicated above. No further recommendations from Dr. Sullivan at this time. Time Spent With Patient Time: Reviewed history, exam, radiographs and current labs with attending MD and covering surgeon, Dr. Sullivan, who agrees with current plan as indicated above. No further recommendations from Dr. Sullivan at this time. Subjective Subjective Date/Time Seen: 09/30/23 09:25 Post Op day: 2 Principal diagnosis: LT femur fracture Interval history: Patient resting comfortably. Awake and alert. Less confused today. Oriented to person, place and time. Complains of minimal pain left hip. Complaining of right knee pain. Hopeful for injection with cortisone. Previously told she had DJD of the right knee. Review of Systems Review of Systems: All systems reviewed & are unremarkable except as noted in HPI and below Exam Const: General: comfortable; No acute distress Resp: Effort & Inspection: normal respiratory effort and no audible wheezes Extrem: Right lower extremity: knee Details: tenderness, normal ROM and abnormal ROM Details: pain with active ROM during Details: in extension and in flexion, lower leg (Negative Jay's sign) Details: normal to inspection, ankle Details: normal ROM ( dorsiflexion and plantar flexion intact) and foot Details: vascular exam Details: dorsalis pedis pulse present and normal capillary refill, tendon exam Details: active flexion normal and active extension normal and motor-sensory exam Details: light-touch normal Location: in all toes; no edema Left lower extremity: normal to inspection, ankle Details: normal ROM and foot Details: vascular exam Details: dorsalis pedis pulse present and normal capillary refill and motor-sensory exam light-touch normal in all toes; no edema Other: LT thigh, muscles soft, negative Jay's. Good sensation throughout. Moves toes and ankle Objective Data Vital Signs Vital Signs: Vital Signs - 24 hr 09/29/23 09:50 09/29/23 10:53 09/29/23 12:00 Temperature 36.6 C Pulse Rate 81 Respiratory Rate 16 Blood Pressure 134/51 L Pulse Oximetry 98 Oxygen Delivery Room Air Room Air 09/29/23 16:00 09/29/23 20:00 09/29/23 20:00 Temperature 36.7 C 36.9 C Pulse Rate 89 103 H Respiratory Rate 16 20 Blood Pressure 146/46 H 134/55 L Pulse Oximetry 97 98 Oxygen Delivery Room Air 09/30/23 00:00 09/30/23 06:53 09/30/23 08:20 Temperature 36.4 C 36.9 C 36.8 C Pulse Rate 91 98 89 Respiratory Rate 20 20 17 Blood Pr
[2023-09-30 12:01] VITALS: BP 138/55; PULSE 83; RESP 18; TEMP 36.9; O2SAT 98
--- NOTE | 2023-09-30 15:37 | PM.IMPN ---
Progress Note: A&P Assessment and Plan (1) Fracture of distal end of left femur: Qualifiers: Encounter type: initial encounter Fracture type: closed Fracture morphology: other fracture Qualified Code(s): S72.492A - Other fracture of lower end of left femur, initial encounter for closed fracture Code(s): S72.402A - Unspecified fracture of lower end of left femur, initial encounter for closed fracture Status: Acute Assessment and Plan: Patient presented with complaints of hip pain after fall. X-ray showed oblique fracture of the proximal left femoral shaft which was displaced and overriding. Orthopedics was consulted and patient underwent IM nail fixation left femur fracture on 09/28/2023. Patient tolerated the procedure well. Therapy was ordered. Pain management per Orthopedics. (2) Hyponatremia: Code(s): E87.1 - Hypo-osmolality and hyponatremia Status: Acute Assessment and Plan: Sodium was low on admission 129. It has improved slightly to 132 Possibly related to dehydration. Continue to monitor. (3) DEYANIRA (acute kidney injury): Code(s): N17.9 - Acute kidney failure, unspecified Status: Acute Assessment and Plan: Creatinine was 0.9 on admission but climbed to 1.5. Probably ATN vs medications vs infectious. Lisinopril and HCTZ on hold. IV fluids started. Creatinine trending downward now. Mild metabolic acidosis resolved. Will follow for now. (4) UTI (urinary tract infection): Qualifiers: Hematuria presence: without hematuria Urinary tract infection type: acute cystitis Qualified Code(s): N30.00 - Acute cystitis without hematuria Code(s): N39.0 - Urinary tract infection, site not specified Status: Acute Assessment and Plan: UA is consistent with UTI. UCx collected. Rocephin started. UCx growing E coli sensitive to Rocephin. Changed to cefdinir (5) Fall from ground level: Code(s): W18.30XA - Fall on same level, unspecified, initial encounter Status: Acute Assessment and Plan: As above. Appears that she was standing next to her sink in the kitchen and lost her balance and fell. There was no head trauma. She was not complaining of knee pain but this seems to be more chronic. The right knee does occasionally buckle. Right knee xray showing mild right knee OA. Will defer to Orthopedics regarding the right knee pain. (6) Abnormal chest x-ray: Code(s): R93.89 - Abnormal findings on diagnostic imaging of other specified body structures Status: Acute Assessment and Plan: Chest x-ray shows subtle patchy airspace opacity in the lungs felt more likely atelectasis than pneumonia. No respiratory symptoms to support pneumonia. Remains on room air. follow clinically. (7) Hypertension: Code(s): I10 - Essential (primary) hypertension Status: Acute Assessment and Plan: Patient's blood pressure was reviewed on Blood pressure remains reasonably well controlled. 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 Continue Keppra (9) Memory loss: Code(s): R41.3 - Other amnesia Status: Acute Assessment and Plan: Stable. Continue Aricept. Remeron was also been resumed. (10) Peripheral vascular disease: Code(s): I73.9 - Peripheral vascular disease, unspecified Status: Acute Assessment and Plan: Patient with known peripheral vascular disease. Currently on Trental. Mirapex and Requip continued for restless leg syndrome. Plan Code status - full DVT prophylaxis - Xarelto Subjective Date/time seen: 09/30/23 15:37 Interval history: 78yo female with HTN, seizures and PVD here for left hip pain after a fall. She feels 'so-so'
[2023-09-30] MEDS: RIVAROXABAN 10 MG TABLET PO (16:17)
[2023-09-30 17:02] VITALS: BP 144/55; PULSE 92; RESP 18; TEMP 36.8; O2SAT 97
[2023-09-30] MEDS: MIRTAZAPINE 15 MG TABLET 45 MG PO (20:50)
[2023-09-30] MEDS: rOPINIRole HCL 1 MG TABLET 4 MG PO (20:50)
[2023-09-30] MEDS: PRAMIPEXOLE 0.25 MG TABLET PO (20:51)
[2023-09-30] MEDS: DONEPEZIL HCL 5 MG TABLET PO (20:51)
[2023-09-30 21:05] VITALS: BP 153/57; PULSE 102; RESP 20; TEMP 36.4; O2SAT 95
[2023-10-01 01:48] VITALS: PULSE 99; RESP 18; TEMP 36.1; O2SAT 95
[2023-10-01] MEDS: HYDROcodone/acetaminophen (*CRX) 5-325 MG TABLET 1 TAB PO ×2 (04:28→17:08)
[2023-10-01] MEDS: SODIUM CHLORIDE 0.9% IV 1,000 ML 80 ML IV CONT (04:28)
[2023-10-01] MEDS: PENTOXIFYLLINE 400 MG TABCR PO ×3 (05:48→20:54)
[2023-10-01 06:00] VITALS: BP 156/58; PULSE 96; RESP 20; TEMP 36.1; O2SAT 93
[2023-10-01 06:32] LABS: Hematocrit 24.1 % (37.0-47.0); Hemoglobin 7.7 g/dL (12.0-15.0); Mean Corpuscular Hemoglobin 30.6 pg (26-34); Mean Corpuscular Volume 95.6 fl (80-100); Mean Platelet Volume 10.7 fl (7.4-10.4); Platelet Count Result 235 k/mm3 (150-375); Red Blood Count 2.52 M/mm3 (4.2-5.4); Red Cell Distribution Width 12.8 % (11.5-14.5); White Blood Count 8.4 K/mm3 (4.5-10.0)
[2023-10-01 06:50] LABS: Albumin Level 3.1 g/dL (3.5-5.1); Anion Gap 4 mmol/L (8-16); Blood Urea Nitrogen 26 mg/dL (7-17); Calcium 9.4 mg/dL (8.4-10.2); Carbon Dioxide 23 mmol/L (22-30); Chloride 109 mmol/L (98-107); Estimated Glomerular Filt Rate 48; Glucose 115 mg/dL (65-110); Phosphorus 2.8 mg/dL (2.5-4.5); Potassium 4.3 mmol/L (3.4-5.0); Sodium 136 mmol/L (137-145)
[2023-10-01] MEDS: FUROSEMIDE INJ 40 MG/4 ML VIAL 20 MG IV PUSH (08:47)
[2023-10-01] MEDS: MAGNESIUM 13.5 MG TABLET (250 MG MAG GLUCONATE) PO (08:48)
[2023-10-01] MEDS: SENNA/DOCUSATE SODIUM TABLET 2 TAB PO ×2 (08:48→17:07)
[2023-10-01] MEDS: levETIRAcetam 500 MG TABLET PO ×2 (08:48→20:53)
[2023-10-01] MEDS: ASPIRIN 325 MG TABLET PO (08:48)
[2023-10-01] MEDS: polyethylene glycoL 3350 17 GM POWD.PACK PO (08:48)
[2023-10-01] MEDS: lisinopriL 20 MG TABLET PO (08:48)
[2023-10-01] MEDS: amLODIPine BESYLATE 5 MG TABLET PO (08:48)
[2023-10-01] MEDS: CEFDINIR 300 MG CAPSULE PO ×2 (08:48→20:53)
[2023-10-01] MEDS: PANTOPRAZOLE 40 MG TABLET PO ×2 (08:49→17:07)
--- NOTE | 2023-10-01 09:53 | PM.PNORT ---
Progress Note: A&P Assessment and Plan (1) Fracture of femur, left, closed: Qualifiers: Encounter type: subsequent encounter Femur location: shaft Fracture morphology: spiral Fracture alignment: displaced Fracture healing: with routine healing Qualified Code(s): S72.342D - Displaced spiral fracture of shaft of left femur, subsequent encounter for closed fracture with routine healing Code(s): S72.92XA - Unspecified fracture of left femur, initial encounter for closed fracture Status: Acute Assessment and Plan: POD #3 LT femur IM nail Continue PT/OT. WBAT. Walker. HIGH FALL RISK. Continue pain control. Ice Leg. Protect skin. DVT prophylaxis with Aspirin/Xarelto SCDs. Incentive Spirometry Use reviewed. Monitor Dressing. Change prior to discharge. Bowel Regimen. Dispo: SNF vs. Swing Bed vs [facility] pending progress with PT/OT (2) Right knee pain: Qualifiers: Chronicity: chronic Qualified Code(s): M25.561 - Pain in right knee; G89.29 - Other chronic pain Code(s): M25.561 - Pain in right knee Status: Acute Assessment and Plan: Family/patient with complaints of right knee pain. Radiographs of the right knee reveal mild to moderate degenerative changes as well as osteopenia. Patient would benefit from a BMD as an outpatient. Discussed cortisone injection for right knee DJD for pain relief at this time. Patient/family agree. Injection performed, tolerated well. May follow up in the outpatient clinic. The risks of injection were reviewed including but not limited to skin color changes, atrophy of the soft tissue, tendon or soft tissue rupture, joint degeneration, hyper inflammatory response, allergic reaction, continued pain or dysfunction. Specific risks of the procedure including deep infection or soft tissue rupture or recurrence of symptoms reviewed. No guarantees were offered. The patient understands the need for possible further treatment. Plan Reviewed history, exam, radiographs and current labs with attending MD and covering surgeon, Dr. Sullivan, who agrees with current plan as indicated above. No further recommendations from Dr. Sullivan at this time. Subjective Subjective Date/Time Seen: 10/01/23 09:53 Post Op day: 3 Principal diagnosis: LT femur fracture Interval history: Patient sitting up in chair at time of exam. Pain well controlled on the LLE currently. Concerns about right knee pain given she is putting all of her weight on that leg. Review of Systems Review of Systems: All systems reviewed & are unremarkable except as noted in HPI and below Exam Const: General: comfortable; No acute distress Resp: Effort & Inspection: normal respiratory effort and no audible wheezes Extrem: Right lower extremity: knee Details: tenderness, normal ROM and abnormal ROM Details: pain with active ROM during Details: in extension and in flexion, lower leg (Negative Jay's sign) Details: normal to inspection, ankle Details: normal ROM ( dorsiflexion and plantar flexion intact) and foot Details: vascular exam Details: dorsalis pedis pulse present and normal capillary refill, tendon exam Details: active flexion normal and active extension normal and motor-sensory exam Details: light-touch normal Location: in all toes; no edema Left lower extremity: normal to inspection, ankle Details: normal ROM and foot Details: vascular exam Details: dorsalis pedis pulse present and normal capillary refill and motor-sensory exam light-touch normal in all toes; no edema Other: LT thigh, muscles soft, negative Jay's. Good sensation throughout. Moves toes and ankle Objective Data Vital Signs Vital Signs: Vital Signs - 24 hr 09/30/23 12:01 09/30/23 17:02 09/30/23 21:05 Temperature 36.9 C 36.8 C 36.4 C L Pulse Rate 83 92 102 H Respiratory Rate 18 18 20 Blood Pressure 138/55 L 144/55 H 153/57 H Pulse Oximetry 98 97 95 10/01/23 01:48 10/01/23 06:00 Temperature 36.1 C L 3
--- NOTE | 2023-10-01 11:33 | PCOTNOTE ---
Attempted to see Patient at this time. Patient and her daughter declined due to have just finishing PT and being returned to bed. Will check back this afternoon.
--- NOTE | 2023-10-01 13:10 | PCCCNOTE ---
On 10/01/23, the student, Jayleen Adkins, provided care and completed [facility] documentation on this patient. I have reviewed the student's documentation and agree with the findings.
[2023-10-01 14:00] VITALS: BP 169/65; PULSE 101; RESP 22; TEMP 36.6; O2SAT 96
[2023-10-01 16:24] LABS: Hematocrit 27.6 % (37.0-47.0); Hemoglobin 8.7 g/dL (12.0-15.0)
--- NOTE | 2023-10-01 16:42 | PM.DS ---
DS: Admitting Diagnosis Discharge Date 10/01/23 Admitting Diagnosis Left leg pain after fall DS: Discharge Diagnosis Discharge Diagnosis (1) Fracture of distal end of left femur: Qualifiers: Encounter type: initial encounter Fracture type: closed Fracture morphology: other fracture Qualified Code(s): S72.492A - Other fracture of lower end of left femur, initial encounter for closed fracture Code(s): S72.402A - Unspecified fracture of lower end of left femur, initial encounter for closed fracture Status: Acute (2) Hyponatremia: Code(s): E87.1 - Hypo-osmolality and hyponatremia Status: Acute (3) DEYANIRA (acute kidney injury): Code(s): N17.9 - Acute kidney failure, unspecified Status: Acute (4) UTI (urinary tract infection): Qualifiers: Hematuria presence: without hematuria Urinary tract infection type: acute cystitis Qualified Code(s): N30.00 - Acute cystitis without hematuria Code(s): N39.0 - Urinary tract infection, site not specified Status: Acute (5) Fall from ground level: Code(s): W18.30XA - Fall on same level, unspecified, initial encounter Status: Acute (6) Abnormal chest x-ray: Code(s): R93.89 - Abnormal findings on diagnostic imaging of other specified body structures Status: Acute (7) Hypertension: Code(s): I10 - Essential (primary) hypertension Status: Acute (8) Partial seizures: Code(s): R56.9 - Unspecified convulsions Status: Acute (9) Memory loss: Code(s): R41.3 - Other amnesia Status: Acute (10) Peripheral vascular disease: Code(s): I73.9 - Peripheral vascular disease, unspecified Status: Acute DS: Summary Hospital Course Reason for hospitalization: 78yo female with HTN, seizures and PVD here for left hip pain after a fall. Please see H&P for details. Hospital Course: Patient presented with complaints of hip pain after fall.? X-ray showed oblique fracture of the proximal left femoral shaft which was displaced and overriding. Orthopedics was consulted and patient underwent IM nail fixation left femur fracture on 09/28/2023. Patient tolerated the procedure well.? Therapy was ordered. Pain was well controlled. Sodium was low on admission 129 felt related to pain and/or dehydration. It has improved slightly to 132. Creatinine was 0.9 on admission but climbed to 1.5. Probably ATN vs medications vs UTI/infectious. Lisinopril and HCTZ held and IV fluids started. Creatinine trended downward now.? Mild metabolic acidosis resolved.?UA is consistent with UTI. UCx collected. Rocephin started. UCx growing E coli sensitive to Rocephin.Changed to cefdinir to complete a course. Patient was standing next to her sink in the kitchen and lost her balance and fell.? There was no head trauma. She was complaining of knee pain but this seems to be more chronic.?The right knee does occasionally buckle. Right knee xray showing mild right knee OA. Chest x-ray shows subtle patchy airspace opacity in the lungs felt more likely atelectasis than pneumonia. No respiratory symptoms to support pneumonia. She remained on room air.? She had anemia with Hgb dropping 11.4 down to 7.7. [place] related to fracture, surgery and IV fluids. Repeat hgb better at 8.7. She overall did well and was able to be discharged on 10/01/23 Status at Discharge Cognitive/behavioral status at discharge: stable Time Spent with Patient Time attestation: Total time spent providing and/or coordinating discharge services: 35 minutes Time spent: Greater than 30 minutes Exam Narrative: AF 97.9 169/65 101 22 96% ra Gen - NARD Chest - bibasilar crackles o/w clear CV - RRR S1/S2. Abd - Soft, NT/ND, Positive BS Ext - No pedal edema. Left hip incision is clean and dry Psych - Nml mood and affect Skin - Warm and dry DS: Data Data Completed and Pending Labs on day of discharge: Labs from last 24 desiree
[2023-10-01] MEDS: RIVAROXABAN 10 MG TABLET PO (17:07)
[2023-10-01 20:20] VITALS: BP 152/82; PULSE 97; RESP 18; TEMP 35.8; O2SAT 97
[2023-10-01] MEDS: rOPINIRole HCL 1 MG TABLET 4 MG PO (20:53)
[2023-10-01 20:54] LABS: Osmolality, Urine 555 mOsm/kg (50-1200)
[2023-10-01] MEDS: PRAMIPEXOLE 0.25 MG TABLET PO (20:54)
[2023-10-01] MEDS: MIRTAZAPINE 15 MG TABLET 45 MG PO (20:54)
[2023-10-01] MEDS: LOVASTATIN 20 MG TABLET PO (20:54)
[2023-10-01] MEDS: DONEPEZIL HCL 5 MG TABLET PO (20:54)
--- NOTE | 2023-10-01 22:18 | PC.NURSE ---
This RN called Radha Irizarry to update on EMS ETA of 35 minutes, and informed the nurse Jazz that all evening meds have been administered.
== END 2023-10-01 23:04 | disposition swing bed (61) | DRG 481 ==
LOC: ANHED 11:21 → ANH3MEDSUR 14:20
PROVIDERS: Internal Medicine; Orthopaedic Surgery; Physician Assistant; Admitting Provider General Practice; Emergency Provider Physician Assistant; PCP Family Medicine; Visit Provider Internal Medicine
PROC: 0QSC36Z Reposition Left Lower Femur with Intramedullary Internal Fixation Device, Percutaneous Approach (ICD-10-PCS; CPT 27245; principal; 2023-09-28 11:00)
DX: S72.492A Other fracture of lower end of left femur, initial encounter for closed fracture (principal); E87.1 Hypo-osmolality and hyponatremia; N30.00 Acute cystitis without hematuria; N17.9 Acute kidney failure, unspecified; W18.30XA Fall on same level, unspecified, initial encounter; B96.20 Unspecified Escherichia coli [E. coli] as the cause of diseases classified elsewhere; E78.5 Hyperlipidemia, unspecified; E55.9 Vitamin D deficiency, unspecified; F17.290 Nicotine dependence, other tobacco product, uncomplicated; G25.81 Restless legs syndrome; I10 Essential (primary) hypertension; I73.9 Peripheral vascular disease, unspecified; K21.9 Gastro-esophageal reflux disease without esophagitis; R56.9 Unspecified convulsions; R41.3 Other amnesia; Z91.81 History of falling; Z79.82 Long term (current) use of aspirin
CPT/HCPCS: 20610; 36415; 71045; 72170; 73552; 73560; 80048; 80053; 80069; 81001; 82550; 82570; 83735; 83930; 83935; 84295; 84300; 84443; 84540; 85014; 85018; 85025; 85027; 85610; 85730; 87086; 87186; 93005; 96365; 96375; 96376; 97110; 97161; 97166; 97530; 97535; 99199; 99285; A9270; C1713; G0378; J0690; J0696; J1100; J1885; J1940; J2270; J2405; J2704; J3010; J7030; J7120

== ENCOUNTER 2023-10-01 20:06 | Inpatient (IN) | payer MEDICARE, MEDICAID, SELFPAY ==
--- NOTE | 2023-10-01 22:18 | PC.NURSE ---
call received from maxime puckett at [facility], [facility] cancelled transport for pt and alternative ems found, reports they will be there to pick pt up by 2300, daughter has gone home for the night
[2023-10-02] VITALS (7 sets, daily range): BP systolic 146–199; BP diastolic 50–76; PULSE 85–102; RESP 16–22; TEMP 36.3–36.8; O2SAT 93–96; BMI 37.8
--- NOTE | 2023-10-02 | ADMGEN ---
This patient, Danette Hernandez, was admitted to 2nd Floor Room 209-1 for SSB program . Patient/family oriented to hospital policies and general routines including ID bracelet, bed and alarms, visiting hours, pain management, procedures, bathroom and other care routines, personal items, smoking policy, room service/diet, and visiting hours. Information on how to activate the Rapid Response Team has been discussed. Patient/Family are encouraged to report perceived risks to care and to ask questions if they do not understand what they are told or what they should do. Pt instructed on PT and OT for evaluation and purpose of SSB program. After details and instruction given, pt verbalized understanding.
[2023-10-02] MEDS: HYDROcodone/acetaminophen (*CRX) 5-325 MG TABLET 1 TAB PO ×5 (00:58→22:28)
[2023-10-02] MEDS: ASPIRIN 325 MG ENTERIC TABLET PO (09:27)
[2023-10-02] MEDS: levETIRAcetam 500 MG TABLET PO ×2 (09:27→20:22)
[2023-10-02] MEDS: lisinopriL 20 MG TABLET PO (09:27)
[2023-10-02] MEDS: amLODIPine BESYLATE 5 MG TABLET PO (09:27)
[2023-10-02] MEDS: hydroCHLOROthiazide 12.5 MG CAPSULE PO (09:28)
[2023-10-02] MEDS: PANTOPRAZOLE 40 MG TABLET PO (09:28)
[2023-10-02] MEDS: CEFDINIR 300 MG CAPSULE PO (09:28)
[2023-10-02] MEDS: PENTOXIFYLLINE 400 MG TABCR PO ×3 (09:28→16:23)
--- NOTE | 2023-10-02 10:50 | PM.IMHP ---
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 Patient underwent intramedullary nail fixation of displaced distal femur fracture on 09/28. Patient was working with PT and OT at [facility] but she needed additional rehabilitation. Currently she is toe-touch weight-bearing and still experiencing significant amount pain. While at [facility] she had findings urinary tract infection, hyponatremia, DEYANIRA and airspace opacities thought to favor atelectasis rather than pneumonia on chest x-ray. Right knee arthritis was also significantly painful for her so she received an injection steroid in the right knee a day prior to discharge to help her with rehabilitation and recovery. While at [facility] repeat blood work showed a decreasing hemoglobin as low as 7.7 felt to be multifactorial due to fracture surgery and IV fluids. Hemoglobin was 8.7 without intervention on discharge. We will plan to monitor by rechecking in a couple of days. No signs of acute blood loss. Currently patient complains only left leg pain. Patient is noted to be hard of hearing and her daughter states that they tried hearing aids but they did not work out well. Overall patient is in good spirits but is afraid of the pain with rehab. Review of Systems Review of Systems: All systems reviewed & are unremarkable except as noted in HPI and below PMFSH Past Medical History Medical History (Updated 09/30/23 @ 10:20 by CORKY Gallardo) Cerebral aneurysm Fracture of femur, left, closed Frequent falls Hyperlipidemia Hypertension Insomnia Memory loss Partial seizures Peripheral vascular disease Restless leg syndrome Right knee pain Vitamin D deficiency Surgical History Surgical History No history of previous surgery Social History Social History Social History: Surrogate medical decision maker: Darshana Martínez, daughter. Code status: Full code. Smoking status: Current some day smoker Tobacco type: e-cigarettes/vaping Additional smoking assessment comments: vapes almost daily when at home Alcohol intake: never Substance use: never Do You Feel Safe in your Home?: Yes Lack of Transportation: YES Lack of Food: Never True Current Housing: I Have Housing Concerned About Future Housing: No Difficulty Paying Gas/Electric Bills: No Difficulty Paying for Meds: No Currently Unemployed: No Education: Grade School Difficulty w/ Childcare or Family Care: No Spiritual care concerns: No Meds Home Medications and Allergies Home Medications Medication Instructions Recorded Confirmed Type amlodipine 5 mg tablet 5 mg PO DAILY 09/27/23 10/02/23 History aspirin 325 mg tablet 325 mg PO DAILY 09/27/23 10/02/23 History benazepril 20 mg tablet 20 mg PO DAILY 09/27/23 10/02/23 History donepezil 5 mg tablet 5 mg PO HS 09/27/23 10/02/23 History hydrochlorothiazide 12.5 mg capsule 12.5 mg PO DAILY 09/27/23 10/02/23 History levetiracetam 500 mg tablet 500 mg PO Q12H 09/27/23 10/02/23 History lovastatin 20 mg tablet 20 mg PO HS 09/27/23 10/02/23 History magnesium 250 mg tablet 250 mg PO DAILY 09/27/23 10/02/23 History mirtazapine 45 mg tablet 45 mg PO HS 09/27/23 10/02/23 History omeprazole 40 mg capsule,delayed 40 mg PO DAILY 09/27/23 10/02/23 History release pentoxifylline 400 mg 400 mg PO TID 09/27/23 10/02/23 History tablet,extended release pramipexole 0.25 mg tablet 0.25 mg PO HS 09/27/23 10/02/23 History ropinirole
[2023-10-02] MEDS: MAGNESIUM OXIDE 400 MG TABLET 200 MG PO (11:46)
[2023-10-02] MEDS: RIVAROXABAN 10 MG TABLET PO (16:23)
[2023-10-02] MEDS: MIRTAZAPINE 15 MG TABLET 45 MG PO (20:22)
[2023-10-02] MEDS: PRAMIPEXOLE 0.25 MG TABLET PO (20:22)
[2023-10-02] MEDS: LOVASTATIN 20 MG TABLET PO (20:22)
[2023-10-02] MEDS: DONEPEZIL HCL 5 MG TABLET PO (20:22)
[2023-10-02] MEDS: rOPINIRole HCL 1 MG TABLET 4 MG PO (20:22)
[2023-10-03] VITALS: BP 144/55; PULSE 77; RESP 16; TEMP 36.6; O2SAT 96
[2023-10-03] MEDS: HYDROcodone/acetaminophen (*CRX) 5-325 MG TABLET 1 TAB PO ×2 (03:32→08:12)
--- NOTE | 2023-10-03 07:30 | PC.NURSE ---
PT VOIDED ON BEDPAN. ASSISTED TO SIDE OF BED WITH MAX ASSIST, PATIENT ABLE TO BALANCE ON SIDE OF BED. UTILIZED SHANIQUE STEDY TO TRANSFER TO RECLINER CHAIR. TOLERATED FAIR. REPORTS PAIN ONLY WITH MOVEMENT. WASH BASIN PROVIDED WITH WARM SOAPY WATER, PT WASHED SELF UP. MOUTH CARE PRODUCTS PROVIDED, USED, DENTURES CLEANED. SET UP FOR BREAKFAST.
[2023-10-03 08:00] VITALS: BP 171/68; PULSE 82; RESP 16; TEMP 36.2; O2SAT 97
[2023-10-03] MEDS: lisinopriL 20 MG TABLET PO (08:11)
[2023-10-03] MEDS: levETIRAcetam 500 MG TABLET PO ×2 (08:11→20:24)
[2023-10-03] MEDS: PENTOXIFYLLINE 400 MG TABCR PO ×3 (08:11→17:11)
[2023-10-03] MEDS: CEFDINIR 300 MG CAPSULE PO (08:12)
[2023-10-03] MEDS: PANTOPRAZOLE 40 MG TABLET PO (08:12)
[2023-10-03] MEDS: ASPIRIN 325 MG ENTERIC TABLET PO (08:13)
[2023-10-03] MEDS: amLODIPine BESYLATE 5 MG TABLET PO (08:13)
[2023-10-03] MEDS: hydroCHLOROthiazide 12.5 MG CAPSULE PO (08:13)
[2023-10-03 09:00] VITALS: BP 127/48
[2023-10-03] MEDS: MAGNESIUM OXIDE 400 MG TABLET 200 MG PO (12:31)
[2023-10-03 15:26] VITALS: BP 153/52; PULSE 78; RESP 16; TEMP 36.2; O2SAT 95
[2023-10-03] MEDS: RIVAROXABAN 10 MG TABLET PO (17:11)
--- NOTE | 2023-10-03 18:43 | PC.NURSE ---
Pain Reassessment, asleep, no continued complaints of pain.
[2023-10-03] MEDS: DONEPEZIL HCL 5 MG TABLET PO (20:24)
[2023-10-03] MEDS: LOVASTATIN 20 MG TABLET PO (20:24)
[2023-10-03] MEDS: rOPINIRole HCL 1 MG TABLET 4 MG PO (20:25)
[2023-10-03] MEDS: PRAMIPEXOLE 0.25 MG TABLET PO (20:25)
[2023-10-03] MEDS: MIRTAZAPINE 15 MG TABLET 45 MG PO (20:25)
[2023-10-04] VITALS: BP 155/73; PULSE 78; RESP 18; TEMP 36.6; O2SAT 96
[2023-10-04] MEDS: HYDROcodone/acetaminophen (*CRX) 5-325 MG TABLET 1 TAB PO ×3 (00:07→21:58)
[2023-10-04 06:18] LABS: Hematocrit 25.2 % (35.0-42.0); Hemoglobin 8.3 g/dL (11.7-13.8); Mean Corpuscular HGB Conc 32.9 g/dL (32.0-36.0); Mean Corpuscular Hemoglobin 30.5 pg (27.0-31.0); Mean Corpuscular Volume 92.6 fL (78.0-102.0); Mean Platelet Volume 9.7 fl (9.2-11.8); Platelet Count Result 323 K/mm3 (150-420); Red Blood Count 2.72 M/mm3 (4.20-5.40); Red Cell Distribution Width 12.7 % (11.6-14.4); White Blood Count 8.9 K/mm3 (4.8-10.8)
[2023-10-04 06:33] LABS: INR 1.1; Partial Thromboplastin Time 26.7 SEC (23.90-30.70); Prothrombin Time 11.5 Seconds (9.50-12.10)
[2023-10-04 06:35] LABS: Alanine Aminotransferase 26 U/L (14-59); Albumin Level 2.7 g/dL (3.4-5.0); Alkaline Phosphatase 146 U/L (46-116); Anion Gap 8 mmol/L (8-16); Aspartate Amino Transferase 27 U/L (15-37); Bilirubin,Total 0.6 mg/dL (0.00-1.00); Blood Urea Nitrogen 33 mg/dL (7-18); Calcium 9.3 mg/dL (8.5-10.1); Carbon Dioxide 27 mmol/L (21-32); Chloride 101 mmol/L (98-108); Creatine Kinase 94 U/L (26-192); Estimated Glomerular Filt Rate 48; Glucose 110 mg/dL (70-99); Magnesium 1.3 mg/dL (1.8-2.4); Osmolality Calculated 290 mOsm/kg (285-295); Potassium 4.1 mmol/L (3.5-5.1); Sodium 136 mmol/L (136-145); Total Protein 6.2 g/dL (6.4-8.2)
[2023-10-04 08:00] VITALS: BP 174/60; PULSE 74; RESP 16; TEMP 36.6; O2SAT 98
[2023-10-04] MEDS: ASPIRIN 325 MG ENTERIC TABLET PO (09:30)
[2023-10-04] MEDS: PANTOPRAZOLE 40 MG TABLET PO (09:33)
[2023-10-04] MEDS: lisinopriL 20 MG TABLET PO (09:33)
[2023-10-04] MEDS: CEFDINIR 300 MG CAPSULE PO (09:33)
[2023-10-04] MEDS: levETIRAcetam 500 MG TABLET PO ×2 (09:33→21:58)
[2023-10-04] MEDS: hydroCHLOROthiazide 12.5 MG CAPSULE PO (09:34)
[2023-10-04] MEDS: amLODIPine BESYLATE 5 MG TABLET PO (09:34)
[2023-10-04] MEDS: PENTOXIFYLLINE 400 MG TABCR PO ×3 (09:34→18:10)
[2023-10-04] MEDS: MAGNESIUM SULF 4 GM/WATER100ML 4 GM/100 ML BAG IVPB (10:25)
[2023-10-04] MEDS: ACETAMINOPHEN 325 MG TABLET 650 MG PO (11:09)
[2023-10-04 16:35] VITALS: BP 170/66; PULSE 102; RESP 18; TEMP 36.4; O2SAT 94
[2023-10-04] MEDS: RIVAROXABAN 10 MG TABLET PO (18:09)
[2023-10-04 20:00] VITALS: PULSE 89; RESP 18; O2SAT 94
[2023-10-04] MEDS: rOPINIRole HCL 1 MG TABLET 4 MG PO (21:57)
[2023-10-04] MEDS: DONEPEZIL HCL 5 MG TABLET PO (21:58)
[2023-10-04] MEDS: PRAMIPEXOLE 0.25 MG TABLET PO (21:58)
[2023-10-04] MEDS: LOVASTATIN 20 MG TABLET PO (21:58)
[2023-10-04] MEDS: MIRTAZAPINE 15 MG TABLET 45 MG PO (21:58)
[2023-10-05] VITALS: BP 166/52; PULSE 82; RESP 16; TEMP 36.6; O2SAT 96
--- NOTE | 2023-10-05 02:45 | PC.NURSE ---
Patient called automotive service writer to room, states she has to go to bathroom real bad , states she is unable to make it to bedside commode and requests to use bedpan. Assisted to bedpan, education given on importance of getting up to bathroom to increase strength and endurance, pt states understanding, reinforcement needed.
--- NOTE | 2023-10-05 07:53 | PM.DS ---
DS: Summary Time Spent with Patient Time attestation: Total time spent providing and/or coordinating discharge services: DS: Data Data Completed and Pending Labs on day of discharge: Labs from last 24 hours 10/05/23 05:37 Magnesium 2.0 Discharge Plan Discharge Discharge Medications: No Action cefdinir 300 mg capsule 300 mg PO DAILY donepezil 5 mg tablet 5 mg PO HS aspirin 325 mg Tablet 325 mg PO DAILY Hold Instructions: HOLD aspirin. Resume when Xarelto course completed. levetiracetam 500 mg tablet 500 mg PO Q12H amlodipine 5 mg tablet 5 mg PO DAILY omeprazole 40 mg capsule,delayed release(DR/EC) 40 mg PO DAILY pentoxifylline 400 mg tablet extended release 400 mg PO TID hydrochlorothiazide 12.5 mg capsule 12.5 mg PO DAILY pramipexole 0.25 mg tablet 0.25 mg PO HS mirtazapine 45 mg tablet 45 mg PO HS benazepril 20 mg tablet 20 mg PO DAILY magnesium 250 mg Tablet 250 mg PO DAILY lovastatin 20 mg tablet 20 mg PO HS ropinirole 4 mg tablet 4 mg PO HS Xarelto 10 mg Tablet 10 mg PO DAILY@17 28 Days Qty: 28 0RF hydrocodone-acetaminophen 5-325 mg Tablet 1 tablet PO Q4-6H PRN (Reason: pain) Qty: 40 0RF Date of admission: 10/01/23 20:06 Primary Care Provider: Faith Kohli Admitting Provider: Jeremy Knowles Attending physician on admission: Jeremy Knowles
[2023-10-05 08:00] VITALS: BP 171/54; PULSE 71; RESP 15; TEMP 36.4; O2SAT 100
--- NOTE | 2023-10-05 08:33 | PM.IMPN ---
Progress Note: A&P Assessment and Plan (1) Fracture of femur, left, closed: Qualifiers: Encounter type: subsequent encounter Femur location: shaft Fracture alignment: displaced Fracture healing: with routine healing Fracture morphology: spiral Qualified Code(s): S72.342D - Displaced spiral fracture of shaft of left femur, subsequent encounter for closed fracture with routine healing Code(s): S72.92XA - Unspecified fracture of left femur, initial encounter for closed fracture Status: Acute Assessment and Plan: toe-touch weight-bearing, PT OT, pain control (2) Right knee pain: Qualifiers: Chronicity: chronic Qualified Code(s): M25.561 - Pain in right knee; G89.29 - Other chronic pain Code(s): M25.561 - Pain in right knee Status: Acute Assessment and Plan: joint injected with steroids prior to discharge at [facility] due to longstanding history of arthritis and new injury to her left leg. (3) Anemia: Code(s): D64.9 - Anemia, unspecified Status: Acute Assessment and Plan: Hemoglobin stable at 8.3 no signs of acute blood loss suspect slow down and bone marrow replacement due to IM nail left hip and acute illness (4) Hypomagnesemia: Code(s): E83.42 - Hypomagnesemia Status: Acute Assessment and Plan: magnesium was 1.3 yesterday. She received 4 g IV replacement over 4 hours yesterday. Magnesium level 2.0 today. (5) Hyponatremia: Code(s): E87.1 - Hypo-osmolality and hyponatremia Status: Acute Assessment and Plan: Sodium was 129 on September 27 on admission to [facility]. It is currently 136 on labs yesterday. Time Spent With Patient Time with patient: 15 - 25 minutes Subjective Date/time seen: 10/05/23 08:33 Interval history: This is a 78-year-old female patient admitted to swing bed status for rehabilitation after left femur fracture from a fall at home. She is toe-touch weight-bearing left lower extremity working with PT and OT. Patient still experiencing significant pain. This morning she rates it 6/10 while sitting in the chair. Discharge planning is hoping to go home. Yesterday labs were checked as she had previous hyponatremia and anemia. Labs were stable/improving except for magnesium. She received 4 g IV magnesium over 4 hours yesterday and lab was recheck today with a normal reading. Patient denies any other current medical concerns except pain in her left leg. Review of Systems Review of Systems: All systems reviewed & are unremarkable except as noted in HPI and below Exam Narrative: GENERAL: Pleasant elderly obese female in no acute distress. Patient is hard of hearing. HEAD: Normocephalic, atraumatic. ENT:? Mucous membranes moist. CHEST: Clear to auscultation.? No respiratory distress. HEART: Regular rate and rhythm. ? Normal peripheral pulses. ABDOMEN: Soft, nontender, nondistended. EXTREMITIES: Normal range of motion. Left upper leg and hip incisions clean dry intact with skin glue, significant bruising around the dependent portion the lower femur region extending into the upper calf SKIN: Warm dry normal color NEURO: Alert and oriented x3. PSYCH: Normal mood and affect Objective Data Vital Signs Vital Signs: Vital Signs - 24 hr 10/04/23 16:35 10/04/23 20:00 10/05/23 00:00 Temperature 36.4 C L 36.6 C Pulse Rate 102 H 89 82 Respiratory Rate 18 18 16 Blood Pressure 170/66 H 166/52 H Pulse Oximetry 94 94 96 Oxygen Delivery Room Air Room Air Room Air Intake/Output Intake/Output: Intake & Output 10/02/23 10/03/23 10/04/23 10/05/23 23:59 23:59 23:59 23:59 Intake Total 4984 934 3232 120 Output Total 796 436 2706 250 Balance 415 180 285 -130 Meds/Results Medications: Active Medications Generic Name Dose Route Start Last Admin Trade Name Freq PRN Reason Stop Dose Admin Acetaminophen 650 mg 10/01/23 21:48 10/04/23 11:09 Acetaminophen 325
[2023-10-05] MEDS: CEFDINIR 300 MG CAPSULE PO (09:59)
[2023-10-05] MEDS: PANTOPRAZOLE 40 MG TABLET PO (09:59)
[2023-10-05] MEDS: amLODIPine BESYLATE 5 MG TABLET PO (09:59)
[2023-10-05] MEDS: hydroCHLOROthiazide 12.5 MG CAPSULE PO (10:00)
[2023-10-05] MEDS: lisinopriL 20 MG TABLET PO (10:00)
[2023-10-05] MEDS: PENTOXIFYLLINE 400 MG TABCR PO ×3 (10:00→17:33)
[2023-10-05] MEDS: levETIRAcetam 500 MG TABLET PO ×2 (10:00→21:00)
[2023-10-05] MEDS: ASPIRIN 325 MG ENTERIC TABLET PO (10:00)
[2023-10-05] MEDS: MAGNESIUM OXIDE 400 MG TABLET 200 MG PO (12:29)
[2023-10-05 16:00] VITALS: BP 171/54; PULSE 71; RESP 15; TEMP 36.4; O2SAT 100
[2023-10-05] MEDS: RIVAROXABAN 10 MG TABLET PO (17:33)
[2023-10-05] MEDS: DONEPEZIL HCL 5 MG TABLET PO (21:00)
[2023-10-05] MEDS: MIRTAZAPINE 15 MG TABLET 45 MG PO (21:00)
[2023-10-05] MEDS: LOVASTATIN 20 MG TABLET PO (21:00)
[2023-10-05] MEDS: PRAMIPEXOLE 0.25 MG TABLET PO (21:00)
[2023-10-05] MEDS: rOPINIRole HCL 1 MG TABLET 4 MG PO (21:00)
[2023-10-05] MEDS: HYDROcodone/acetaminophen (*CRX) 5-325 MG TABLET 1 TAB PO (21:04)
[2023-10-06 00:25] VITALS: BP 168/54; PULSE 82; RESP 16; TEMP 36; O2SAT 95
[2023-10-06 08:00] VITALS: BP 142/70; PULSE 65; RESP 20; TEMP 36.2; O2SAT 93
[2023-10-06] MEDS: CEFDINIR 300 MG CAPSULE PO (10:07)
[2023-10-06] MEDS: amLODIPine BESYLATE 5 MG TABLET PO (10:07)
[2023-10-06] MEDS: hydroCHLOROthiazide 12.5 MG CAPSULE PO (10:07)
[2023-10-06] MEDS: lisinopriL 20 MG TABLET PO (10:07)
[2023-10-06] MEDS: ASPIRIN 325 MG ENTERIC TABLET PO (10:07)
[2023-10-06] MEDS: levETIRAcetam 500 MG TABLET PO ×2 (10:07→20:52)
[2023-10-06] MEDS: PENTOXIFYLLINE 400 MG TABCR PO ×3 (10:08→17:14)
[2023-10-06] MEDS: PANTOPRAZOLE 40 MG TABLET PO (10:08)
[2023-10-06] MEDS: MAGNESIUM OXIDE 400 MG TABLET 200 MG PO (13:54)
[2023-10-06 16:00] VITALS: BP 157/68; PULSE 81; RESP 17; TEMP 36.6; O2SAT 94
[2023-10-06] MEDS: HYDROcodone/acetaminophen (*CRX) 5-325 MG TABLET 1 TAB PO ×2 (17:13→20:51)
[2023-10-06] MEDS: RIVAROXABAN 10 MG TABLET PO (17:14)
[2023-10-06] MEDS: DONEPEZIL HCL 5 MG TABLET PO (20:51)
[2023-10-06] MEDS: MIRTAZAPINE 15 MG TABLET 45 MG PO (20:51)
[2023-10-06] MEDS: LOVASTATIN 20 MG TABLET PO (20:52)
[2023-10-06] MEDS: rOPINIRole HCL 1 MG TABLET 4 MG PO (20:53)
[2023-10-06] MEDS: PRAMIPEXOLE 0.25 MG TABLET PO (20:53)
[2023-10-07] VITALS: BP 161/50; PULSE 74; RESP 16; TEMP 36.2; O2SAT 96
[2023-10-07 08:00] VITALS: BP 162/54; PULSE 72; RESP 18; TEMP 36.6; O2SAT 98
--- NOTE | 2023-10-07 08:05 | P.PNCROSS_ITS ---
Event Note Event Note Event Note: This provider assumes care from Zachary Dyer NP. I met with the patient this mo rning to introduce myself and establish a baseline assessment. Patient has been working with therapy and states this is going well.?She was working with therapy yesterday when I came on service so her visit was deferred to today. She denies any complaints. Her pain is well controlled. General: well appearing, well developed, well nourished, appears stated age.? HEENT: normocephalic, atraumatic. Mucous membranes moist. EOMI, PERRLA, bilateral sclera anicteric, no conjunctival injection. Neck supple without JVD, lymphadenopathy, or bruit. Respiratory: clear to auscultation bilaterally. No rales/rhonic/wheezes. Cardiovascular: Regular rate and rhythm, normal S1-S2 upon auscultation. No murmurs, rubs, or clicks. PMI is nondisplaced, capillary re-fill less than 3 second. Abdomen: Soft, round, no pulsatile masses, non-distended, and non-tender. No rebound, no guarding. No CVA tenderness, no hepatosplenomegaly.? Bowel sounds hypoactive to all four quadrants. No high pitch or tinkling sounds, resonant to percussion. Extremities: No cyanosis, clubbing, or edema present. Pulses are palpable 2/2.? Active ROM to all four extremities. Neuro: Alert and orientated x 4. PERRLA. Cranial nerves 2-12 intact without focal deficit. Skin: Warm, dry, and intact, without rash, erythema, or lesion. Lines: Incisions: Left lateral hip and thigh incisions are well approximated with dermabond. Generalized bruising and some edema present. No s/s of infection. Psych: pleasant, cooperative, normal speech, normal affect, no hallucinations, no dysarthria ?
[2023-10-07] MEDS: hydroCHLOROthiazide 12.5 MG CAPSULE PO (09:07)
[2023-10-07] MEDS: PENTOXIFYLLINE 400 MG TABCR PO ×3 (09:07→17:39)
[2023-10-07] MEDS: ASPIRIN 325 MG ENTERIC TABLET PO (09:07)
[2023-10-07] MEDS: lisinopriL 20 MG TABLET PO (09:07)
[2023-10-07] MEDS: levETIRAcetam 500 MG TABLET PO ×2 (09:07→20:21)
[2023-10-07] MEDS: amLODIPine BESYLATE 5 MG TABLET PO (09:07)
[2023-10-07] MEDS: PANTOPRAZOLE 40 MG TABLET PO (09:07)
[2023-10-07] MEDS: HYDROcodone/acetaminophen (*CRX) 5-325 MG TABLET 1 TAB PO ×2 (10:51→20:22)
[2023-10-07] MEDS: MAGNESIUM OXIDE 400 MG TABLET 200 MG PO (12:58)
[2023-10-07 16:00] VITALS: BP 129/48; PULSE 68; RESP 18; TEMP 36.3; O2SAT 96
[2023-10-07] MEDS: RIVAROXABAN 10 MG TABLET PO (17:39)
[2023-10-07 20:00] VITALS: PULSE 68; RESP 18; O2SAT 96
[2023-10-07] MEDS: MIRTAZAPINE 15 MG TABLET 45 MG PO (20:21)
[2023-10-07] MEDS: rOPINIRole HCL 1 MG TABLET 4 MG PO (20:21)
[2023-10-07] MEDS: DONEPEZIL HCL 5 MG TABLET PO (20:21)
[2023-10-07] MEDS: PRAMIPEXOLE 0.25 MG TABLET PO (20:21)
[2023-10-07] MEDS: LOVASTATIN 20 MG TABLET PO (20:26)
[2023-10-08] VITALS: BP 124/47; PULSE 71; RESP 16; TEMP 36.4; O2SAT 96
[2023-10-08 08:00] VITALS: BP 183/56; PULSE 84; RESP 16; TEMP 36.5; O2SAT 96
[2023-10-08] MEDS: hydroCHLOROthiazide 12.5 MG CAPSULE PO (09:10)
[2023-10-08] MEDS: ASPIRIN 325 MG ENTERIC TABLET PO (09:10)
[2023-10-08] MEDS: levETIRAcetam 500 MG TABLET PO ×2 (09:11→20:55)
[2023-10-08] MEDS: PANTOPRAZOLE 40 MG TABLET PO (09:11)
[2023-10-08] MEDS: amLODIPine BESYLATE 5 MG TABLET PO (09:11)
[2023-10-08] MEDS: PENTOXIFYLLINE 400 MG TABCR PO ×3 (09:11→17:55)
[2023-10-08] MEDS: lisinopriL 20 MG TABLET PO (09:11)
[2023-10-08] MEDS: MAGNESIUM OXIDE 400 MG TABLET PO (12:06)
[2023-10-08] MEDS: HYDROcodone/acetaminophen (*CRX) 5-325 MG TABLET 1 TAB PO ×2 (13:46→17:58)
[2023-10-08 16:00] VITALS: BP 152/58; PULSE 80; RESP 18; TEMP 36.4; O2SAT 96
[2023-10-08] MEDS: RIVAROXABAN 10 MG TABLET PO (17:55)
[2023-10-08 19:50] VITALS: RESP 18; O2SAT 97
[2023-10-08] MEDS: LOVASTATIN 20 MG TABLET PO (20:53)
[2023-10-08] MEDS: rOPINIRole HCL 1 MG TABLET 4 MG PO (20:53)
[2023-10-08] MEDS: MIRTAZAPINE 15 MG TABLET 45 MG PO (20:54)
[2023-10-08] MEDS: PRAMIPEXOLE 0.25 MG TABLET PO (20:54)
[2023-10-08] MEDS: DONEPEZIL HCL 5 MG TABLET PO (20:56)
[2023-10-09] VITALS: BP 154/53; PULSE 78; RESP 20; TEMP 36.4; O2SAT 95
[2023-10-09 08:00] VITALS: BP 168/60; PULSE 76; RESP 16; TEMP 36.6; O2SAT 96
[2023-10-09] MEDS: ASPIRIN 325 MG ENTERIC TABLET PO (09:33)
[2023-10-09] MEDS: hydroCHLOROthiazide 12.5 MG CAPSULE PO (09:33)
[2023-10-09] MEDS: levETIRAcetam 500 MG TABLET PO ×2 (09:33→20:53)
[2023-10-09] MEDS: PENTOXIFYLLINE 400 MG TABCR PO ×3 (09:33→18:08)
[2023-10-09] MEDS: PANTOPRAZOLE 40 MG TABLET PO (09:34)
[2023-10-09] MEDS: amLODIPine BESYLATE 5 MG TABLET PO (09:34)
[2023-10-09] MEDS: lisinopriL 20 MG TABLET PO (09:34)
[2023-10-09] MEDS: MAGNESIUM OXIDE 400 MG TABLET PO (11:45)
[2023-10-09] MEDS: HYDROcodone/acetaminophen (*CRX) 5-325 MG TABLET 1 TAB PO ×2 (11:45→18:08)
[2023-10-09 16:40] VITALS: BP 146/46; PULSE 81; RESP 16; TEMP 36.4; O2SAT 98
[2023-10-09] MEDS: RIVAROXABAN 10 MG TABLET PO (18:08)
[2023-10-09] MEDS: MIRTAZAPINE 15 MG TABLET 45 MG PO (20:52)
[2023-10-09] MEDS: PRAMIPEXOLE 0.25 MG TABLET PO (20:52)
[2023-10-09] MEDS: rOPINIRole HCL 1 MG TABLET 4 MG PO (20:52)
[2023-10-09] MEDS: DONEPEZIL HCL 5 MG TABLET PO (20:53)
[2023-10-09] MEDS: LOVASTATIN 20 MG TABLET PO (20:53)
[2023-10-09] MEDS: ACETAMINOPHEN 325 MG TABLET 650 MG PO (20:54)
[2023-10-10] VITALS: BP 131/47; PULSE 75; RESP 19; TEMP 36.4; O2SAT 97
[2023-10-10 08:00] VITALS: BP 135/50; PULSE 75; RESP 14; TEMP 36.8; O2SAT 98
[2023-10-10] MEDS: hydroCHLOROthiazide 12.5 MG CAPSULE PO (10:12)
[2023-10-10] MEDS: ASPIRIN 325 MG ENTERIC TABLET PO (10:12)
[2023-10-10] MEDS: PENTOXIFYLLINE 400 MG TABCR PO ×3 (10:12→17:51)
[2023-10-10] MEDS: lisinopriL 20 MG TABLET PO (10:12)
[2023-10-10] MEDS: amLODIPine BESYLATE 5 MG TABLET PO (10:12)
[2023-10-10] MEDS: levETIRAcetam 500 MG TABLET PO ×2 (10:12→21:14)
[2023-10-10] MEDS: PANTOPRAZOLE 40 MG TABLET PO (10:13)
[2023-10-10] MEDS: MAGNESIUM OXIDE 400 MG TABLET PO (12:15)
[2023-10-10] MEDS: HYDROcodone/acetaminophen (*CRX) 5-325 MG TABLET 1 TAB PO ×2 (13:13→21:11)
[2023-10-10 16:40] VITALS: BP 137/48; PULSE 75; RESP 16; TEMP 36.7; O2SAT 97
[2023-10-10] MEDS: RIVAROXABAN 10 MG TABLET PO (17:51)
[2023-10-10] MEDS: DONEPEZIL HCL 5 MG TABLET PO (21:11)
[2023-10-10] MEDS: MIRTAZAPINE 15 MG TABLET 45 MG PO (21:13)
[2023-10-10] MEDS: LOVASTATIN 20 MG TABLET PO (21:13)
[2023-10-10] MEDS: rOPINIRole HCL 1 MG TABLET 4 MG PO (21:13)
[2023-10-10] MEDS: PRAMIPEXOLE 0.25 MG TABLET PO (21:13)
[2023-10-11] VITALS: BP 123/35; PULSE 75; RESP 17; TEMP 36.4; O2SAT 97
[2023-10-11 08:00] VITALS: BP 135/58; PULSE 78; RESP 14; TEMP 37; O2SAT 97
[2023-10-11] MEDS: levETIRAcetam 500 MG TABLET PO ×2 (09:48→21:21)
[2023-10-11] MEDS: PENTOXIFYLLINE 400 MG TABCR PO ×3 (09:48→18:04)
[2023-10-11] MEDS: hydroCHLOROthiazide 12.5 MG CAPSULE PO (09:49)
[2023-10-11] MEDS: PANTOPRAZOLE 40 MG TABLET PO (09:49)
[2023-10-11] MEDS: lisinopriL 20 MG TABLET PO (09:49)
[2023-10-11] MEDS: amLODIPine BESYLATE 5 MG TABLET PO (09:49)
[2023-10-11] MEDS: ASPIRIN 325 MG ENTERIC TABLET PO (09:49)
[2023-10-11] MEDS: MAGNESIUM OXIDE 400 MG TABLET PO (12:30)
[2023-10-11] MEDS: HYDROcodone/acetaminophen (*CRX) 5-325 MG TABLET 1 TAB PO ×2 (14:57→21:21)
[2023-10-11 16:45] VITALS: BP 161/55; PULSE 77; RESP 18; TEMP 36.7; O2SAT 99
[2023-10-11] MEDS: RIVAROXABAN 10 MG TABLET PO (18:04)
[2023-10-11 20:00] VITALS: PULSE 77; RESP 18; O2SAT 99
[2023-10-11] MEDS: DONEPEZIL HCL 5 MG TABLET PO (21:21)
[2023-10-11] MEDS: MIRTAZAPINE 15 MG TABLET 45 MG PO (21:21)
[2023-10-11] MEDS: PRAMIPEXOLE 0.25 MG TABLET PO (21:21)
[2023-10-11] MEDS: rOPINIRole HCL 1 MG TABLET 4 MG PO (21:21)
[2023-10-11] MEDS: LOVASTATIN 20 MG TABLET PO (21:21)
[2023-10-12] VITALS: BP 124/42; PULSE 72; RESP 16; TEMP 36.4; O2SAT 96
[2023-10-12] MEDS: HYDROcodone/acetaminophen (*CRX) 5-325 MG TABLET 1 TAB PO ×3 (05:52→20:30)
[2023-10-12 07:35] VITALS: BP 177/50; PULSE 79; RESP 16; TEMP 36.6; O2SAT 99
[2023-10-12] MEDS: levETIRAcetam 500 MG TABLET PO ×2 (09:04→20:29)
[2023-10-12] MEDS: PENTOXIFYLLINE 400 MG TABCR PO ×3 (09:04→16:52)
[2023-10-12] MEDS: amLODIPine BESYLATE 5 MG TABLET PO (09:05)
[2023-10-12] MEDS: lisinopriL 20 MG TABLET PO (09:05)
[2023-10-12] MEDS: PANTOPRAZOLE 40 MG TABLET PO (09:05)
[2023-10-12] MEDS: hydroCHLOROthiazide 12.5 MG CAPSULE PO (09:05)
[2023-10-12] MEDS: ASPIRIN 325 MG ENTERIC TABLET PO (09:05)
[2023-10-12] MEDS: MAGNESIUM OXIDE 400 MG TABLET PO (12:41)
[2023-10-12 16:00] VITALS: BP 112/48; PULSE 74; RESP 16; TEMP 36.6; O2SAT 96
[2023-10-12] MEDS: RIVAROXABAN 10 MG TABLET PO (16:52)
[2023-10-12 20:00] VITALS: PULSE 74; RESP 16; O2SAT 96
[2023-10-12] MEDS: LOVASTATIN 20 MG TABLET PO (20:29)
[2023-10-12] MEDS: PRAMIPEXOLE 0.25 MG TABLET PO (20:29)
[2023-10-12] MEDS: rOPINIRole HCL 1 MG TABLET 4 MG PO (20:29)
[2023-10-12] MEDS: MIRTAZAPINE 15 MG TABLET 45 MG PO (20:30)
[2023-10-12] MEDS: DONEPEZIL HCL 5 MG TABLET PO (20:30)
[2023-10-13] VITALS: BP 122/45; PULSE 78; RESP 16; TEMP 36.8; O2SAT 96
[2023-10-13 08:00] VITALS: BP 132/50; PULSE 78; RESP 14; TEMP 36.6; O2SAT 92
[2023-10-13] MEDS: PANTOPRAZOLE 40 MG TABLET PO (09:47)
[2023-10-13] MEDS: ASPIRIN 325 MG ENTERIC TABLET PO (09:48)
[2023-10-13] MEDS: levETIRAcetam 500 MG TABLET PO ×2 (09:48→21:10)
[2023-10-13] MEDS: hydroCHLOROthiazide 12.5 MG CAPSULE PO (09:48)
[2023-10-13] MEDS: lisinopriL 20 MG TABLET PO (09:48)
[2023-10-13] MEDS: PENTOXIFYLLINE 400 MG TABCR PO ×3 (09:48→17:03)
[2023-10-13] MEDS: amLODIPine BESYLATE 5 MG TABLET PO (09:48)
--- NOTE | 2023-10-13 11:49 | PM.IMPN ---
Progress Note: A&P Assessment and Plan (1) Fracture of femur, left, closed: Qualifiers: Encounter type: subsequent encounter Femur location: shaft Fracture morphology: spiral Fracture alignment: displaced Fracture healing: with routine healing Qualified Code(s): S72.342D - Displaced spiral fracture of shaft of left femur, subsequent encounter for closed fracture with routine healing Code(s): S72.92XA - Unspecified fracture of left femur, initial encounter for closed fracture Status: Acute Assessment and Plan: toe-touch weight-bearing, PT OT, pain control (2) Right knee pain: Qualifiers: Chronicity: chronic Qualified Code(s): M25.561 - Pain in right knee; G89.29 - Other chronic pain Code(s): M25.561 - Pain in right knee Status: Acute Assessment and Plan: joint injected with steroids prior to discharge at [facility] due to longstanding history of arthritis and new injury to her left leg. (3) Anemia: Code(s): D64.9 - Anemia, unspecified Status: Acute Assessment and Plan: Hemoglobin stable at 8.3 no signs of acute blood loss suspect slow down and bone marrow replacement due to IM nail left hip and acute illness will recheck labs on 10/13 (4) Hypomagnesemia: Code(s): E83.42 - Hypomagnesemia Status: Acute Assessment and Plan: magnesium was 1.3 yesterday. She received 4 g IV replacement over 4 hours yesterday. Magnesium level 2.0 today. will recheck labs on 10/13 (5) Hyponatremia: Code(s): E87.1 - Hypo-osmolality and hyponatremia Status: Acute Assessment and Plan: Sodium was 129 on September 27 on admission to [facility]. It is currently 136 on labs yesterday. will recheck labs on 10/13 Plan Recheck labs on 10/13, encourage patient to be up out of bed more often. Family to bring in a cushion to add to the chair that she uses at home to ease discomfort on her backside. Time Spent With Patient Time with patient: 25 - 35 minutes ( 32 minutes) Subjective Date/time seen: 10/13/23 11:49 Interval history: 10/04: This is a 78-year-old female patient admitted to swing bed status for rehabilitation after left femur fracture from a fall at home. She is toe-touch weight-bearing left lower extremity working with PT and OT. Patient still experiencing significant pain. This morning she rates it 6/10 while sitting in the chair. Discharge planning is hoping to go home. Yesterday labs were checked as she had previous hyponatremia and anemia. Labs were stable/improving except for magnesium. She received 4 g IV magnesium over 4 hours yesterday and lab was recheck today with a normal reading. Patient denies any other current medical concerns except pain in her left leg. 10/06: This provider assumes care from Zachary Dyer NP. I met with the patient this morning to introduce myself and establish a baseline assessment. Patient has been working with therapy and states this is going well.?She was working with therapy yesterday when I came on service so her visit was deferred to today. She denies any complaints. Her pain is well controlled. 10/12: Patient seen and examined today. Bruising is improving of her left leg moderate swelling in her thigh is still present. Patient is toe-touch weight-bearing with walker transferring fairly well but not wanting to stay up chair long states that it hurts her behind. Family at bedside continues to encourage patient to work with therapy and be up out of bed more often. Review of Systems Review of Systems: All systems reviewed & are unremarkable except as noted in HPI and below Exam Narrative: GENERAL: Pleasant elderly obese female in no acute distress. Patient is hard of hearing. HEAD: Normocephalic, atraumatic. ENT:? Mucous membranes moist. CHEST: Clear to auscultation.? No respiratory distress. HEART: Regular rate and rhythm. ? Normal peripheral pulses. ABDOMEN: Soft
[2023-10-13] MEDS: MAGNESIUM OXIDE 400 MG TABLET PO (12:25)
[2023-10-13 16:00] VITALS: BP 128/74; PULSE 88; RESP 16; TEMP 36.1; O2SAT 96
[2023-10-13] MEDS: RIVAROXABAN 10 MG TABLET PO (17:03)
[2023-10-13] MEDS: HYDROcodone/acetaminophen (*CRX) 5-325 MG TABLET 1 TAB PO (18:17)
[2023-10-13] MEDS: rOPINIRole HCL 1 MG TABLET 4 MG PO (21:10)
[2023-10-13] MEDS: LOVASTATIN 20 MG TABLET PO (21:10)
[2023-10-13] MEDS: PRAMIPEXOLE 0.25 MG TABLET PO (21:10)
[2023-10-13] MEDS: DONEPEZIL HCL 5 MG TABLET PO (21:10)
[2023-10-13] MEDS: MIRTAZAPINE 15 MG TABLET 45 MG PO (21:10)
[2023-10-14] VITALS: BP 133/58; PULSE 72; RESP 16; TEMP 36.6; O2SAT 95
[2023-10-14 05:30] LABS: Basophils Absolute Auto 0.05 K/mm3 (0.00-0.10); Basophils Percent Auto 0.8 % (0.0-1.0); Eosinophils Absolute Auto 0.13 K/mm3 (0.02-0.50); Hematocrit 28.8 % (35.0-42.0); Hemoglobin 8.9 g/dL (11.7-13.8); Immature Granulocyte Absolute 0.03 K/mm3 (0.00-0.00); Immature Granulocyte Percent A 0.5 % (0.0-0.0); Lymphocytes Absolute Auto 1.52 K/mm3 (1.10-4.50); Lymphocytes Percent Auto 23.7 % (18.0-42.0); Mean Corpuscular HGB Conc 30.9 g/dL (32-36); Mean Corpuscular Hemoglobin 29.6 pg (27.0-31.0); Mean Corpuscular Volume 95.7 fL (78.0-102.0); Mean Platelet Volume 9.9 fl (9.2-11.8); Monocytes Absolute Auto 0.55 K/mm3 (0.10-0.90); Monocytes Percent Auto 8.6 % (2.0-11.0); Neutrophils Absolute Auto 4.14 K/mm3 (1.70-7.20); Neutrophils Percent Auto 64.4 % (50.0-70.0); Platelet Count Result 410 K/mm3 (150-420); Red Blood Count 3.01 M/mm3 (4.20-5.40); Red Cell Distribution Width 13.8 % (11.6-14.4); White Blood Count 6.4 K/mm3 (4.8-10.8)
[2023-10-14 05:47] LABS: Anion Gap 9 mmol/L (8-16); Blood Urea Nitrogen 29 mg/dL (7-18); Calcium 9.3 mg/dL (8.5-10.1); Carbon Dioxide 24 mmol/L (21-32); Chloride 105 mmol/L (98-108); Estimated Glomerular Filt Rate 47; Glucose 99 mg/dL (70-99); Magnesium 1.6 mg/dL (1.8-2.4); Osmolality Calculated 291 mOsm/kg (285-295); Phosphorus 3.4 mg/dL (2.6-4.7); Potassium 4.3 mmol/L (3.5-5.1); Sodium 138 mmol/L (136-145)
[2023-10-14 08:00] VITALS: BP 140/60; PULSE 78; RESP 16; TEMP 36.8; O2SAT 97
[2023-10-14] MEDS: HYDROcodone/acetaminophen (*CRX) 5-325 MG TABLET 1 TAB PO ×2 (09:22→21:57)
[2023-10-14] MEDS: MAGNESIUM OXIDE 400 MG TABLET PO ×2 (09:37→16:49)
[2023-10-14] MEDS: PANTOPRAZOLE 40 MG TABLET PO (09:38)
[2023-10-14] MEDS: levETIRAcetam 500 MG TABLET PO ×2 (09:38→21:57)
[2023-10-14] MEDS: hydroCHLOROthiazide 12.5 MG CAPSULE PO (09:38)
[2023-10-14] MEDS: ASPIRIN 325 MG ENTERIC TABLET PO (09:38)
[2023-10-14] MEDS: lisinopriL 20 MG TABLET PO (09:38)
[2023-10-14] MEDS: amLODIPine BESYLATE 5 MG TABLET PO (09:38)
[2023-10-14] MEDS: PENTOXIFYLLINE 400 MG TABCR PO ×3 (09:38→16:49)
[2023-10-14 16:35] VITALS: BP 142/60; PULSE 77; RESP 16; TEMP 36.5; O2SAT 97
[2023-10-14] MEDS: RIVAROXABAN 10 MG TABLET PO (16:49)
[2023-10-14] MEDS: LOVASTATIN 20 MG TABLET PO (21:56)
[2023-10-14] MEDS: rOPINIRole HCL 1 MG TABLET 4 MG PO (21:56)
[2023-10-14] MEDS: DONEPEZIL HCL 5 MG TABLET PO (21:57)
[2023-10-14] MEDS: MIRTAZAPINE 15 MG TABLET 45 MG PO (21:57)
[2023-10-14] MEDS: PRAMIPEXOLE 0.25 MG TABLET PO (21:58)
[2023-10-15 08:00] VITALS: BP 140/49; PULSE 74; RESP 14; TEMP 36.3; O2SAT 96
[2023-10-15] MEDS: PENTOXIFYLLINE 400 MG TABCR PO ×3 (10:13→15:58)
[2023-10-15] MEDS: HYDROcodone/acetaminophen (*CRX) 5-325 MG TABLET 1 TAB PO ×3 (10:13→21:01)
[2023-10-15] MEDS: PANTOPRAZOLE 40 MG TABLET PO (10:14)
[2023-10-15] MEDS: levETIRAcetam 500 MG TABLET PO ×2 (10:14→21:01)
[2023-10-15] MEDS: lisinopriL 20 MG TABLET PO (10:14)
[2023-10-15] MEDS: ASPIRIN 325 MG ENTERIC TABLET PO (10:14)
[2023-10-15] MEDS: hydroCHLOROthiazide 12.5 MG CAPSULE PO (10:14)
[2023-10-15] MEDS: MAGNESIUM OXIDE 400 MG TABLET PO ×2 (10:15→15:57)
[2023-10-15] MEDS: amLODIPine BESYLATE 5 MG TABLET PO (10:15)
[2023-10-15] MEDS: RIVAROXABAN 10 MG TABLET PO (15:58)
[2023-10-15 16:00] VITALS: BP 131/68; PULSE 68; RESP 16; TEMP 36.3; O2SAT 96
[2023-10-15] MEDS: rOPINIRole HCL 1 MG TABLET 4 MG PO (21:01)
[2023-10-15] MEDS: DONEPEZIL HCL 5 MG TABLET PO (21:01)
[2023-10-15] MEDS: MIRTAZAPINE 15 MG TABLET 45 MG PO (21:02)
[2023-10-15] MEDS: LOVASTATIN 20 MG TABLET PO (21:03)
[2023-10-15] MEDS: PRAMIPEXOLE 0.25 MG TABLET PO (21:03)
[2023-10-16] VITALS: BP 142/50; PULSE 73; RESP 20; TEMP 37.1; O2SAT 95
[2023-10-16 08:00] VITALS: BP 144/59; PULSE 78; RESP 18; TEMP 36.3; O2SAT 96
[2023-10-16] MEDS: MAGNESIUM OXIDE 400 MG TABLET PO ×2 (09:03→17:54)
[2023-10-16] MEDS: ASPIRIN 325 MG ENTERIC TABLET PO (09:03)
[2023-10-16] MEDS: hydroCHLOROthiazide 12.5 MG CAPSULE PO (09:03)
[2023-10-16] MEDS: lisinopriL 20 MG TABLET PO (09:03)
[2023-10-16] MEDS: PANTOPRAZOLE 40 MG TABLET PO (09:03)
[2023-10-16] MEDS: PENTOXIFYLLINE 400 MG TABCR PO ×3 (09:03→17:54)
[2023-10-16] MEDS: amLODIPine BESYLATE 5 MG TABLET PO (09:03)
[2023-10-16] MEDS: levETIRAcetam 500 MG TABLET PO ×2 (09:03→21:16)
[2023-10-16] MEDS: HYDROcodone/acetaminophen (*CRX) 5-325 MG TABLET 1 TAB PO ×3 (09:09→21:16)
[2023-10-16 16:00] VITALS: BP 127/45; PULSE 74; RESP 16; TEMP 36.3; O2SAT 95
[2023-10-16] MEDS: RIVAROXABAN 10 MG TABLET PO (17:54)
[2023-10-16 20:00] VITALS: PULSE 74; RESP 16; O2SAT 95
[2023-10-16] MEDS: LOVASTATIN 20 MG TABLET PO (21:15)
[2023-10-16] MEDS: rOPINIRole HCL 1 MG TABLET 4 MG PO (21:15)
[2023-10-16] MEDS: DONEPEZIL HCL 5 MG TABLET PO (21:16)
[2023-10-16] MEDS: MIRTAZAPINE 15 MG TABLET 45 MG PO (21:16)
[2023-10-16] MEDS: PRAMIPEXOLE 0.25 MG TABLET PO (21:16)
[2023-10-17] VITALS: BP 113/35; PULSE 71; RESP 16; TEMP 36.8; O2SAT 95
[2023-10-17 08:00] VITALS: BP 162/50; PULSE 83; RESP 16; TEMP 36.3; O2SAT 100
[2023-10-17] MEDS: amLODIPine BESYLATE 5 MG TABLET PO (09:17)
[2023-10-17] MEDS: lisinopriL 20 MG TABLET PO (09:17)
[2023-10-17] MEDS: levETIRAcetam 500 MG TABLET PO ×2 (09:17→20:28)
[2023-10-17] MEDS: PENTOXIFYLLINE 400 MG TABCR PO ×3 (09:17→17:07)
[2023-10-17] MEDS: HYDROcodone/acetaminophen (*CRX) 5-325 MG TABLET 1 TAB PO ×3 (09:17→20:29)
[2023-10-17] MEDS: MAGNESIUM OXIDE 400 MG TABLET PO ×2 (09:17→17:07)
[2023-10-17] MEDS: hydroCHLOROthiazide 12.5 MG CAPSULE PO (09:17)
[2023-10-17] MEDS: ASPIRIN 325 MG ENTERIC TABLET PO (09:17)
[2023-10-17] MEDS: PANTOPRAZOLE 40 MG TABLET PO (09:17)
[2023-10-17 16:00] VITALS: BP 146/41; PULSE 76; RESP 18; TEMP 36.8; O2SAT 97
[2023-10-17] MEDS: RIVAROXABAN 10 MG TABLET PO (17:07)
[2023-10-17 20:00] VITALS: PULSE 76; RESP 18; O2SAT 97
[2023-10-17] MEDS: LOVASTATIN 20 MG TABLET PO (20:28)
[2023-10-17] MEDS: MIRTAZAPINE 15 MG TABLET 45 MG PO (20:29)
[2023-10-17] MEDS: DONEPEZIL HCL 5 MG TABLET PO (20:29)
[2023-10-17] MEDS: PRAMIPEXOLE 0.25 MG TABLET PO (20:29)
[2023-10-17] MEDS: rOPINIRole HCL 1 MG TABLET 4 MG PO (20:29)
[2023-10-18] VITALS: BP 156/57; PULSE 70; RESP 16; TEMP 36.7; O2SAT 96
--- NOTE | 2023-10-18 04:16 | PC.NURSE ---
Pt called to state she had an accident. Assisted to bedside commode with 1 assist, gait belt, and tristin-steady. Depends noted to be slightly wet, bed pad wet only on right side, and blanket noted on floor and wet with urine. Pt states she has been placing blankets in her depend and urinating on blanket, pt unable to give a reason for this behavior. Pt reminded and encouraged to use call light.
[2023-10-18 08:00] VITALS: BP 171/52; PULSE 72; RESP 18; TEMP 35.8; O2SAT 98
[2023-10-18] MEDS: levETIRAcetam 500 MG TABLET PO ×2 (08:57→21:50)
[2023-10-18] MEDS: PANTOPRAZOLE 40 MG TABLET PO (08:57)
[2023-10-18] MEDS: hydroCHLOROthiazide 12.5 MG CAPSULE PO (08:57)
[2023-10-18] MEDS: ASPIRIN 325 MG ENTERIC TABLET PO (08:57)
[2023-10-18] MEDS: HYDROcodone/acetaminophen (*CRX) 5-325 MG TABLET 1 TAB PO ×4 (08:57→21:51)
[2023-10-18] MEDS: lisinopriL 20 MG TABLET PO (08:57)
[2023-10-18] MEDS: amLODIPine BESYLATE 5 MG TABLET PO (08:57)
[2023-10-18] MEDS: MAGNESIUM OXIDE 400 MG TABLET PO ×2 (08:57→17:49)
[2023-10-18] MEDS: PENTOXIFYLLINE 400 MG TABCR PO ×3 (08:57→17:49)
--- NOTE | 2023-10-18 10:47 | PM.DS ---
DS: Admitting Diagnosis Discharge Date 10/19/2023 Admitting Diagnosis Fracture of distal end of left femur, UTI, hyponatremia, hypertension, partial seizures DS: Discharge Diagnosis Discharge Diagnosis (1) Fracture of femur, left, closed: Qualifiers: Encounter type: subsequent encounter Femur location: shaft Fracture morphology: spiral Fracture alignment: displaced Fracture healing: with routine healing Qualified Code(s): S72.342D - Displaced spiral fracture of shaft of left femur, subsequent encounter for closed fracture with routine healing Code(s): S72.92XA - Unspecified fracture of left femur, initial encounter for closed fracture Status: Acute (2) Right knee pain: Qualifiers: Chronicity: chronic Qualified Code(s): M25.561 - Pain in right knee; G89.29 - Other chronic pain Code(s): M25.561 - Pain in right knee Status: Acute (3) Anemia: Code(s): D64.9 - Anemia, unspecified Status: Acute (4) Hypomagnesemia: Code(s): E83.42 - Hypomagnesemia Status: Acute (5) Hyponatremia: Code(s): E87.1 - Hypo-osmolality and hyponatremia Status: Acute DS: Summary Hospital Course Reason for hospitalization: swing bed rehabilitation left femur fracture Hospital Course: This is a 78-year-old female patient who was admitted to swing bed status for acute rehabilitation related to fracture of left femur status post fall. Patient had previously been at [facility] underwent operative repair with IM nail for displaced distal femur fracture on the left. Patient had difficulty with rehabilitation due to short stature requiring modifications such as pediatric sized to walker and low bed. Patient also has history of significant right knee arthritis for which she received joint injection steroids prior to discharge from [facility] to assist in rehabilitation. However, patient had significant pain in bilateral lower extremities and preferred to spend most of her time in bed. Over time patient was not progressing well enough to return home so arrangements were made for patient to go to shelter for continued rehabilitation attempts with possibility of permanent placement. While here patient was treated for hypo magnesemia as well as monitored for anemia and hyponatremia. These conditions have all remained stable and modifications to home medications were undertaken. Patient was noted to remain significantly hypertensive day entire stay here so amlodipine was increased to 10 mg daily. List of prescriptions sent to the nursing facility yesterday and on discharge today her original prescription for hydrocodone that was printed by [facility] was sent with her to continue pain medication. She received a dose of [place] prior to departing. Status at Discharge Cognitive/behavioral status at discharge: awake alert hard of hearing but pleasant Functional status at discharge: uses cane/walker Overall status at discharge: patient is progressing back to baseline ( slowly progressing) Time Spent with Patient Time attestation: Total time spent providing and/or coordinating discharge services: 40 minutes Time spent: Greater than 30 minutes Exam Narrative: GENERAL: Pleasant elderly obese female in no acute distress. Patient is hard of hearing. HEAD: Normocephalic, atraumatic. ENT:? Mucous membranes moist. CHEST: Clear to auscultation.? No respiratory distress. HEART: Regular rate and rhythm. ? Normal peripheral pulses. ABDOMEN: Soft, nontender, nondistended. EXTREMITIES: Normal range of motion. Left upper leg and hip incisions clean dry healed intact, left thigh edema remains but improved, bruising significantly improved SKIN: Warm dry normal color NEURO: Alert and oriented x3. PSYCH: Normal mood and affect Discharge Plan Discharge Attending physician on discharge: Jeremy Knowles Discharging Clinician: Hari Dyer Anticipated Dis
[2023-10-18 16:00] VITALS: BP 116/48; PULSE 70; RESP 16; TEMP 36.9; O2SAT 97
[2023-10-18] MEDS: RIVAROXABAN 10 MG TABLET PO (17:49)
[2023-10-18 20:00] VITALS: PULSE 70; RESP 16; O2SAT 97
[2023-10-18] MEDS: LOVASTATIN 20 MG TABLET PO (21:50)
[2023-10-18] MEDS: PRAMIPEXOLE 0.25 MG TABLET PO (21:50)
[2023-10-18] MEDS: rOPINIRole HCL 1 MG TABLET 4 MG PO (21:50)
[2023-10-18] MEDS: MIRTAZAPINE 15 MG TABLET 45 MG PO (21:50)
[2023-10-18] MEDS: DONEPEZIL HCL 5 MG TABLET PO (21:51)
[2023-10-19] VITALS: BP 134/47; PULSE 71; RESP 16; TEMP 36.5; O2SAT 96
[2023-10-19 07:41] VITALS: BP 161/62; PULSE 80; RESP 16; TEMP 36.7; O2SAT 98
[2023-10-19] MEDS: PENTOXIFYLLINE 400 MG TABCR PO (08:06)
[2023-10-19] MEDS: lisinopriL 20 MG TABLET PO (08:07)
[2023-10-19] MEDS: levETIRAcetam 500 MG TABLET PO (08:07)
[2023-10-19] MEDS: amLODIPine BESYLATE 5 MG TABLET 10 MG PO (08:07)
[2023-10-19] MEDS: PANTOPRAZOLE 40 MG TABLET PO (08:08)
[2023-10-19] MEDS: ASPIRIN 325 MG ENTERIC TABLET PO (08:08)
[2023-10-19] MEDS: hydroCHLOROthiazide 12.5 MG CAPSULE PO (08:08)
[2023-10-19] MEDS: MAGNESIUM OXIDE 400 MG TABLET PO (08:08)
[2023-10-19] MEDS: HYDROcodone/acetaminophen (*CRX) 5-325 MG TABLET 1 TAB PO (11:05)
--- NOTE | 2023-10-19 11:27 | PC.NURSE ---
Discharge note: Left w/c with daughter to [facility], paperwork sent with daughter, daughter took belongings.
--- NOTE | 2023-10-19 11:37 | PC.NURSE ---
Nurses Note: Report called to jail nurse.
--- NOTE | 2023-10-21 09:53 | PC.NURSE ---
Discharge call back, to [facility], no questions from staff voiced regarding dc
== END 2023-10-19 11:25 | DRG 560 ==
PROVIDERS: Nurse Practitioner; Admitting Provider Internal Medicine; Visit Provider Internal Medicine
DX: S72.402D Unspecified fracture of lower end of left femur, subsequent encounter for closed fracture with routine healing (principal); E87.1 Hypo-osmolality and hyponatremia; N39.0 Urinary tract infection, site not specified; E83.42 Hypomagnesemia; I10 Essential (primary) hypertension; I73.9 Peripheral vascular disease, unspecified; D64.9 Anemia, unspecified; G40.909 Epilepsy, unspecified, not intractable, without status epilepticus; G25.81 Restless legs syndrome; I69.298 Other sequelae of other nontraumatic intracranial hemorrhage; M17.11 Unilateral primary osteoarthritis, right knee; R29.6 Repeated falls; E55.9 Vitamin D deficiency, unspecified; F17.290 Nicotine dependence, other tobacco product, uncomplicated; W19.XXXD Unspecified fall, subsequent encounter; Z79.82 Long term (current) use of aspirin
CPT/HCPCS: 36415; 80053; 80069; 82550; 83735; 85025; 85027; 85610; 85730; 97110; 97112; 97161; 97165; 97530; 97535; A9270; J3475